=== PATIENT | female | born 1980 | race Caucasian/White ===

== ENCOUNTER 2019-04-22 14:43 | Emergency (ER) | payer OTHER, SELFPAY ==
[2019-04-22 14:50] VITALS: BP 149/89; PULSE 106; RESP 20; TEMP 37.2; O2SAT 98
--- NOTE | 2019-04-22 15:02 | ED.URI ---
HPI - URI/Sore Throat General Chief Complaint: Upper Respiratory Infection Stated Complaint: sore throat Time Seen by Provider: 04/22/19 15:02 Source: patient and RN notes reviewed History of Present Illness HPI Narrative: Patient is a 39-year-old female who presents the urgent care with complaints of sore throat. Patient states that it started last night and she has not taken anything for her symptoms. Patient denies any known fever, chills, nausea, vomiting. Reports of a slight headache. No other acute complaints. No acute distress noted. Patient read the plan of care. Related Data Allergies Allergy/AdvReac Type Severity Reaction Status Date / Time tree nut Allergy Severe Rash Verified 04/22/19 15:04 aloe Allergy Mild Rash Verified 04/22/19 15:04 corn Allergy Unknown Other Verified 04/22/19 15:04 latex Allergy Unknown Other Verified 04/22/19 15:04 wheat Allergy Unknown Other Verified 04/22/19 15:04 Cat Dander Allergy Unknown Other Uncoded 04/22/19 15:04 Dog Dander Allergy Unknown Other Uncoded 04/22/19 15:04 Review of Systems Review of Systems: Narrative: CONSTITUTIONAL: Denies fever, chills, or sweats. EYES: Denies visual changes, redness, or discharge. ENT: Reports of sore throat CARDIOVASCULAR: Denies chest pain, palpitations, or edema. RESPIRATORY: Denies cough or dyspnea. GASTROINTESTINAL: Denies abdominal pain, nausea, vomiting, or diarrhea. GENITOURINARY: Denies dysuria or hematuria. SKIN: Denies rash or itching. MUSCULOSKELETAL: Denies back pain, joint pain, or myalgia. NEUROLOGIC: Denies headache, numbness, or weakness. All other systems reviewed are negative, except as documented in HPI. [facility] Social History Social History Gender identity (if verbalized by the patient): Female Comments At the time of my signature, I reviewed and agree with the nursing past medical, surgical, social, and family history. There is no relevant family history pertinent to the patient complaint. Exam Narrative: Exam Narrative: GENERAL: This is a well-nourished, well-developed patient, in no apparent distress. HEAD: normocephalic, atraumatic. EYES: PERRL. Sclera clear/white. Vision is grossly intact. EARS: External ears normal, auditory canals clear and without drainage, TMs normal without perforation. Hearing grossly intact. NOSE: External nose normal with no obvious nasal discharge, nares without redness, no rhinorrhea. THROAT: Mucous membranes moist, mild erythema noted posterior oropharynx with moderate bilateral erythemic tonsils with ulcerated tonsil on the right. No exudate noted. NECK: Neck supple CARDIOVASCULAR: Regular rate and rhythm without murmurs, gallops, or rubs. RESPIRATORY: Clear to auscultation. Breath sounds equal bilaterally. No wheezes, rales, or rhonchi. SKIN: warm, intact with no suspicious lesions or rash, good texture and turgor. NEURO: awake, alert, and oriented to person, place and time. There were no obvious focal neurologic abnormalities. EXTREMITIES: No clubbing, cyanosis, or edema. Course Vital Signs Vital signs: Vital Signs Temperature 99.0 F 04/22/19 14:50 Pulse Rate 106 H 04/22/19 14:50 Respiratory Rate 20 04/22/19 14:50 Blood Pressure 149/89 H 04/22/19 14:50 Pulse Oximetry 98 04/22/19 14:50 Temperature 99.0 F 04/22/19 14:50 Pulse Rate 106 H 04/22/19 14:50 Respiratory Rate 20 04/22/19 14:50 Blood Pressure 149/89 H 04/22/19 14:50 Pulse Oximetry 98 04/22/19 14:50 Reviewed?patient is informed that they may have pre-hypertension or hypertension based on a blood pressure reading in the department. I recommend the patient call the primary care provider listed on their discharge instructions or a physician of their choice this week to arrange follow-up for further evaluation of possible pre-hypertension or hypertension. MDM - URI/Sore Throat MDM Narrative Medical decision making narrative: Reviewed lab results with the patient. She is aware that strep swab was ne
== END 2019-04-22 15:20 | disposition home or self-care (01) ==
PROVIDERS: Emergency Provider Nurse Practitioner Family
DX: J02.9 Acute pharyngitis, unspecified (principal)
CPT/HCPCS: 87081; 87880; 99213; G0463

== ENCOUNTER 2021-06-11 19:03 | Emergency (ER) | payer OTHER, SELFPAY ==
--- NOTE | ~2021-06-11 | XR_ITS ---
EXAMINATION: XR chest 2V DATE: 06/11/2021 19:37 INDICATION: Chest tightness. Wheezing. Cough. TECHNIQUE: Frontal and lateral views of the chest were obtained. COMPARISON: None. FINDINGS: The chest demonstrates clear lungs without pneumonia, pleural effusion, or pneumothorax. Th e heart size is normal. IMPRESSION: 1. No acute cardiopulmonary disease. Reviewed, dictated and finalized at location A.
[2021-06-11 19:09] VITALS: BP 147/88; PULSE 78; RESP 18; TEMP 36.6; O2SAT 98
--- NOTE | 2021-06-11 19:14 | ED.URI ---
HPI - URI/Sore Throat General Chief Complaint: Shortness of Breath/Dyspnea Stated Complaint: cough wheezing tight chest Time Seen by Provider: 06/11/21 19:27 Source: patient and RN notes reviewed Mode of arrival: ambulatory Limitations: no limitations History of Present Illness MD elicited complaint: cough and sore throat Related Data Home Medications Medication Instructions Recorded Confirmed No Home Medications 06/11/21 06/11/21 Allergies Allergy/AdvReac Type Severity Reaction Status Date / Time tree nut Allergy Severe Rash Verified 04/22/19 15:04 aloe Allergy Mild Rash Verified 04/22/19 15:04 corn Allergy Unknown Other Verified 04/22/19 15:04 latex Allergy Unknown Other Verified 04/22/19 15:04 wheat Allergy Unknown Other Verified 04/22/19 15:04 soy Allergy Hives Verified 06/11/21 19:25 Cat Dander Allergy Unknown Other Uncoded 04/22/19 15:04 Dog Dander Allergy Unknown Other Uncoded 04/22/19 15:04 Review of Systems Review of Systems: CONSTITUTIONAL: Denies malaise, chills, sweats, or fever. EYES: Denies visual changes, redness, or discharge. ENT: Reports rhinorrhea, congestion, sinus pain, otalgia and sore throat. CARDIOVASCULAR: Denies chest pain, palpitations, or edema. RESPIRATORY: Reports cough. Denies dyspnea. GASTROINTESTINAL: Denies abdominal pain, nausea, vomiting, diarrhea SKIN: Denies rash or itching. MUSCULOSKELETAL: Denies myalgia. NEUROLOGIC: Denies headache. All systems reviewed & are unremarkable except as noted in HPI and below PMFSH Social History Social History Gender identity (if verbalized by the patient): Female Comments At time of signature, agree with nursing past medical, surgical, social and family history. There is no relevant family history pertinent to the presenting complaint Exam Narrative: GENERAL: Well-appearing, well-nourished, and in no acute distress. HEAD: Normocephalic EYES: PERRLA, conjunctivae clear ENT: Nares clear, turbinates edematous and erythematous, clear discharge. Mucous membranes moist. TM pearly medina with dull light reflex bilaterally; no tragal tenderness. Oropharynx not erythematous without lesions. Tonsils not enlarged and without exudate, no drooling, no hoarseness, no trismus, uvula midline. NECK: Supple. No lymphadenopathy CHEST: Clear to auscultation, breath sounds equal. No wheezing, rhonchi, rales, or stridor. No respiratory distress, speaks in full sentences. HEART: Regular rate and rhythm. No murmur heard. SKIN: Warm, dry, no rash. NEURO: Alert and oriented x3. PSYCH: Normal mood and affect Course Course Emergency Course: Patient is aware of diagnosis, understands and agrees to treatment plan. Anticipatory guidance given. Patient agrees to follow-up as directed and is aware of reasons to seek care at the emergency department. Portions of this record may have been created with voice recognition software Level of Care: Express Care Visit Vital Signs Vital signs: Reviewed. MDM - URI/Sore Throat MDM Narrative Medical decision making narrative: Differential diagnosis considered: [place] virus, strep pharyngitis, allergic rhinitis, upper respiratory tract infection, sinusitis, rhinosinusitis, nasopharyngitis. viral pharyngitis, otitis media, otitis externa, pneumonia, bronchitis, viral cough syndrome, viral syndrome, and influenza. Exam findings show no acute concerns or changes; patient is non-toxic appearing and is in no distress. Patient is appropriate for outpatient treatment and follow-up. Lab Data Attestation: I reviewed the patient's lab results. Critical Care Time Critical Care Time Critical Care Time: No Discharge Plan Discharge Prescriptions: No Action No Home Medications RF: 0
--- NOTE | 2021-06-11 19:17 | ECG_ITS ---
Measurements Intervals [place] Rate: 70 P: 44 [place]: 163 QRS: 1 QRSD: 87 T: 30 QT: 383 QTc: 413 Interpretive Statements SINUS RHYTHM RSR' IN V1 AND V2 POSSIBLE RIGHT VENTRICULAR CONDUCTION DELAY BORDERLINE ECG COMPARED TO ECG 06/11/2021 19:19:38 NO SIGNIFICANT CHANGES Electronically Signed On 06-12-2021 15:35:59 CDT by Brent Arrieta M.D.
--- NOTE | 2021-06-11 19:32 | ED.SOB ---
HPI - SOB/Dyspnea General Chief Complaint: Shortness of Breath/Dyspnea Stated Complaint: cough wheezing tight chest Time Seen by Provider: 06/11/21 19:27 Mode of arrival: ambulatory Limitations: no limitations History of Present Illness HPI Narrative: 41-year-old female presents with concern for chest heaviness, shortness of breath. Reports yesterday she had a cough, the cough resolved yesterday. She reports today she had a feeling of chest heaviness and pressure like an elephant was sitting on her chest. She reports she has shortness of breath that worsens with exertion. She reports history of high blood pressure. She uses a CPAP machine at night. Patient reports she has been on control for many years, she recently stopped her control pills. She denies nasal congestion, rhinorrhea, sore throat, body aches. Reports increased fatigue. MD elicited complaint: shortness of breath and chest pain Related Data Home Medications Medication Instructions Recorded Confirmed No Home Medications 06/11/21 06/11/21 Allergies Allergy/AdvReac Type Severity Reaction Status Date / Time tree nut Allergy Severe Rash Verified 04/22/19 15:04 aloe Allergy Mild Rash Verified 04/22/19 15:04 corn Allergy Unknown Other Verified 04/22/19 15:04 latex Allergy Unknown Other Verified 04/22/19 15:04 wheat Allergy Unknown Other Verified 04/22/19 15:04 soy Allergy Hives Verified 06/11/21 19:25 Cat Dander Allergy Unknown Other Uncoded 04/22/19 15:04 Dog Dander Allergy Unknown Other Uncoded 04/22/19 15:04 Review of Systems Review of Systems: CONSTITUTIONAL: Denies malaise, chills, sweats, or fever. Reports fatigue EYES: Denies visual changes, redness, or discharge. ENT: Denies rhinorrhea, congestion, sinus pain, otalgia or sore throat. CARDIOVASCULAR: Reports midsternal chest pain and heaviness. Denies palpitations, or edema. RESPIRATORY: Denies current cough. Reports exertional dyspnea. MUSCULOSKELETAL: Denies back pain or myalgia. All systems reviewed & are unremarkable except as noted in HPI and below PMFSH Social History Social History Gender identity (if verbalized by the patient): Female Comments At time of signature, agree with nursing past medical, surgical, social and family history. There is no relevant family history pertinent to the presenting complaint Exam Narrative: GENERAL: Well-appearing, well-nourished, and in no acute distress. HEAD: Normocephalic, atraumatic. EYES: PERRLA, sclera clear, and EOMI. ENT: Mucous membranes moist. NECK: Supple. CHEST: No respiratory distress. Clear to auscultation. No bony deformities, no asymmetry. Speaks in full sentences. HEART: Regular rate and rhythm. No murmur heard. Normal peripheral pulses. SKIN: Warm, dry, no visible rash. NEURO: Alert and oriented x3. PSYCH: Normal mood and affect Course Course Emergency Course: Patient is aware of, understands and agrees to reasons to be seen in the emergency department. EMS offered, patient refused patient agrees to proceed directly to the emergency department. Portions of this record may have been created with voice recognition software Level of Care: Express Care Visit Vital Signs Vital signs: Vital Signs Temperature 98 F 06/11/21 19:09 Pulse Rate 78 06/11/21 19:09 Respiratory Rate 18 06/11/21 19:09 Blood Pressure 147/88 H 06/11/21 19:09 Pulse Oximetry 98 06/11/21 19:09 Temperature 98 F 06/11/21 19:09 Pulse Rate 78 06/11/21 19:09 Respiratory Rate 18 06/11/21 19:09 Blood Pressure 147/88 H 06/11/21 19:09 Pulse Oximetry 98 06/11/21 19:09 Reviewed. Patient has history of hypertension Transfer Transfered to: [place] Transportation: Other Transfer rationale: Chest pain Accepting physician: Maria L Macias Transfer comments: EMS offered Patient refused, she will have her sister drive her. MDM - SOB/Dyspnea MDM Narrative Medical decision making narrative: Exam findings and history warrant fur
== END 2021-06-11 19:55 | disposition short-term general hospital (02) ==
PROVIDERS: Emergency Provider Nurse Practitioner; PCP Nurse Practitioner Family
DX: R07.9 Chest pain, unspecified (principal)
CPT/HCPCS: 71046; 87804; 93005; 99213; G0463

== ENCOUNTER 2021-06-11 20:26 | Emergency (ER) | payer OTHER, SELFPAY ==
--- NOTE | ~2021-06-11 | XR_ITS ---
EXAMINATION: XR chest 2V DATE: 06/11/2021 20:43 INDICATION: Chest pain. TECHNIQUE: Frontal and lateral views of the chest were obtained. COMPARISON: Chest 2 views 06/11/2021 at 7:37 PM FINDINGS: The chest demonstrates clear lungs without pneumonia, pleural effusion, or pneumothorax. Th e heart size is normal. IMPRESSION: 1. No acute cardiopulmonary disease. Reviewed, dictated and finalized at location A.
--- NOTE | 2021-06-11 20:27 | ECG_ITS ---
Measurements Intervals [place] Rate: 67 P: 55 HI: 157 QRS: 11 QRSD: 90 T: 43 QT: 387 QTc: 411 Interpretive Statements SINUS RHYTHM POSSIBLE RIGHT VENTRICULAR CONDUCTION DELAY [RSR' IN V1/V2] BORDERLINE ECG NO PREVIOUS ECG AVAILABLE FOR COMPARISON Electronically Signed On 06-12-2021 15:32:40 CDT by Brent Arrieta M.D.
[2021-06-11 20:54] VITALS: BP 138/81; PULSE 73; RESP 18; TEMP 36.7; O2SAT 99
--- NOTE | 2021-06-11 20:59 | ED.CHESTPAIN ---
HPI - Chest Pain General Chief Complaint: Chest Pain Stated Complaint: chest pain Time Seen by Provider: 06/11/21 20:59 Source: patient Mode of arrival: ambulatory Limitations: no limitations History of Present Illness HPI narrative: Patient is a 41-year-old female who presents to the emergency department for evaluation for chest pressure mild shortness of breath over the past few days. Patient states she initially had productive cough, slight wheezing and thought that perhaps she had pneumonia. She states that she took a nap today and when she awakened experience left-sided chest pressure. No upper abdominal pain. No diaphoresis. No radiation of the pain to the jaw, neck, shoulder. No ripping or tearing sensation to the flank, middle back, abdomen. Patient does not take control, states that she was on it for many years but has discontinued it greater than 2 months ago. She denies recent long car or air travel. Denies recent history of known Covid. Denies immobility or recent surgery. Denies leg swelling, calf pain or redness. Denies history of coagulopathy in self or family members. Patient does not smoke. Patient does not feel this is related to dyspepsia. Denies any burning sensation. Patient states she went to an urgent care and was told she may have a blood clot based on some EKG findings and was referred to this emergency department. Pain has been present since 130 this afternoon. Pain described as a pressure overlying the left chest. Denies sharp or tearing pain. Denies recent heavy bending or lifting. Denies recent fall or injury. Related Data Allergies Allergy/AdvReac Type Severity Reaction Status Date / Time tree nut Allergy Severe Rash Verified 04/22/19 15:04 aloe Allergy Mild Rash Verified 04/22/19 15:04 corn Allergy Unknown Other Verified 04/22/19 15:04 latex Allergy Unknown Other Verified 04/22/19 15:04 wheat Allergy Unknown Other Verified 04/22/19 15:04 soy Allergy Hives Verified 06/11/21 19:25 Cat Dander Allergy Unknown Other Uncoded 04/22/19 15:04 Dog Dander Allergy Unknown Other Uncoded 04/22/19 15:04 Review of Systems Review of Systems: CONSTITUTIONAL: Denies fever, chills, or sweats. EYES: Denies visual changes, redness, or discharge. ENT: Denies rhinorrhea, congestion, sore throat, or otalgia. CARDIOVASCULAR: Reports left-sided chest pain without palpitations or edema RESPIRATORY: Reports cough has resolved, denies current shortness of breath GASTROINTESTINAL: Denies abdominal pain, nausea, vomiting, or diarrhea. GENITOURINARY: Denies dysuria or hematuria. SKIN: Denies rash or itching. MUSCULOSKELETAL: Denies back pain, joint pain, or myalgia. NEUROLOGIC: Denies headache, numbness, or weakness. PSYCHIATRIC: Reports history of borderline personality disorder [facility] Past Medical History Medical History (Updated 06/11/21 @ 22:42 by Daija Carolina MD) Chest pain Social History Social History (Updated 06/11/21 @ 21:22 by Daija Carolina MD) Smoking status: Never smoker Alcohol intake: never Substance use: current Substance use type: marijuana Gender identity (if verbalized by the patient): Female Exam Narrative: GENERAL: Awake, alert, conversant HEAD: Normocephalic, atraumatic. EYES: PERRLA and EOMI. ENT: Nares clear, no rhinorrhea or epistaxis. Mucous membranes moist. NECK: Supple. CHEST: No respiratory distress, breathing even and non labored, no chest wall tenderness, no wheezing, no crackles HEART: Regular rate, sinus rhythm ABDOMEN:Non distended, non tender EXTREMITIES: Normal range of motion. No edema. No calf tenderness, redness. SKIN: Warm, dry, no rash. NEURO:No focal deficits. Alert and oriented x3 Course Vital Signs Vital signs: Vital Signs Temperature 36.7 C 06/11/21 20:54 Pulse Rate 73 06/11/21 20:54 Respiratory Rate 18 06/11/21 20:54 Blood Pressure 138/81 06/11/21 20:54 Pulse Oximetry 99 06/11/21 20:54 Temperature 36.7 C 05/15
[2021-06-11 21:07] LABS: Basophils Absolute Auto 0.1 K/mm3 (0.0-0.1); Basophils Percent Auto 0.4 % (0.2-1.2); Eosinophils Absolute Auto 0.7 K/mm3 (0-0.3); Eosinophils Percent Auto 6.1 % (0-4.4); Hematocrit 43.7 % (37.0-47.0); Hemoglobin 14.9 g/dL (12.0-15.0); Immature Granulocyte Percent A 1.7 % (0-0.5); Lymphocytes Absolute Auto 4.31 K/mm3 (0.9-3.2); Lymphocytes Percent Auto 36.2 % (18.3-44.2); Mean Corpuscular HGB Conc 34.1 g/dl (32-36); Mean Corpuscular Hemoglobin 31.6 pg (26-34); Mean Corpuscular Volume 92.8 fl (80-100); Mean Platelet Volume 10.2 fl (7.4-10.4); Monocytes Absolute Auto 0.7 K/mm3 (0.1-0.6); Monocytes Percent Auto 5.6 % (2.6-8.5); Neutrophils Absolute Auto 5.9 K/mm3 (1.3-6.7); Platelet Count Result 247 k/mm3 (150-375); Red Blood Count 4.71 M/mm3 (4.2-5.4); Red Cell Distribution Width 13.3 % (11.5-14.5); White Blood Count 11.9 K/mm3 (4.5-10.0)
[2021-06-11 21:17] LABS: Alanine Aminotransferase 36 U/L (4-35); Albumin Level 4.3 g/dL (3.5-5.1); Alkaline Phosphatase 64 U/L (38-126); Anion Gap 8 mmol/L (8-16); Aspartate Amino Transferase 33 U/L (14-36); Bilirubin,Total 0.6 mg/dL (0.2-1.3); Blood Urea Nitrogen 11 mg/dL (7-17); Calcium 9.2 mg/dL (8.4-10.2); Carbon Dioxide 28 mmol/L (22-30); Chloride 102 mmol/L (98-107); Estimated CRCL calculation 149 ml/min; Estimated Glomerular Filt Rate > 60; Glucose 108 mg/dL (65-110); Lipase 242 U/L (23-300); Potassium 3.9 mmol/L (3.4-5.0); Sodium 138 mmol/L (137-145)
[2021-06-11 21:28] LABS: Troponin I < 0.012 ng/mL (0.000-0.034)
[2021-06-11 22:09] LABS: Prothrombin Time 12.6 Seconds (11.1-14.7)
[2021-06-11 22:10] LABS: Partial Thromboplastin Time 27.6 SECONDS (22.3-36.8)
[2021-06-11 22:13] LABS: D Dimer 0.41 ug/mL (<0.48)
[2021-06-11 23:12] VITALS: BP 144/100; PULSE 78; RESP 17; O2SAT 98
== END 2021-06-11 23:30 | disposition home or self-care (01) ==
PROVIDERS: Family Medicine; Emergency Provider Emergency Medicine; PCP Nurse Practitioner Family
DX: R07.89 Other chest pain (principal)
CPT/HCPCS: 36415; 71046; 80053; 83690; 84484; 85025; 85380; 85610; 85730; 87804; 93005; 99284

== ENCOUNTER 2023-01-15 09:30 | Emergency (ER) | payer OTHER, SELFPAY ==
[2023-01-15 09:36] VITALS: BP 157/96; PULSE 65; RESP 18; TEMP 36.1; O2SAT 100
--- NOTE | 2023-01-15 09:40 | ECG_ITS ---
Measurements Intervals [place] Rate: 51 P: 60 [place]: 176 QRS: 16 QRSD: 86 T: 60 QT: 422 QTc: 392 Interpretive Statements SINUS BRADYCARDIA WITH SINUS ARRHYTHMIA BASELINE ARTIFACT- II, III, AVF BORDERLINE ECG COMPARED TO ECG 06/11/2021 20:31:50 SINUS BRADYCARDIA NOW PRESENT SINUS ARRHYTHMIA NOW PRESENT Electronically Signed On 01-15-2023 11:03:25 CDT by Bravo Marshall D.O.
--- NOTE | 2023-01-15 09:49 | ED.GENADULT ---
HPI - General Adult General Stated complaint: Low Heart Rate/Dizziness Time Seen by Provider: 01/15/23 09:49 Source: patient Mode of arrival: ambulatory Limitations: no limitations History of Present Illness HPI narrative: 52-year-old female with history of high blood pressure presents with complaint of low heart rate, feeling dizzy and lightheaded for the last 3 days. Reports heart rate as low as 40 on her watch. Patient reports today she is feeling extremely fatigued, shortness of breath with exertion, left upper back pain. Denies nausea vomiting. No URI symptoms. Patient recently had allergic reaction and is taking dexamethasone, Pepcid and Claritin. All systems reviewed and negative except as noted above. Related Data Home Medications Medication Instructions Recorded Confirmed cetirizine 10 mg tablet 10 mg PO DAILY 01/15/23 01/15/23 famotidine 20 mg tablet 20 mg PO BID 01/15/23 01/15/23 lisinopril 10 mg tablet 10 mg PO DAILY 01/15/23 01/15/23 norethindrone 1 mg-ethinyl 1 tablet PO DAILY 01/15/23 01/15/23 estradiol 10 mcg (24)-iron 10 mcg(2) tablet (Lo Loestrin Fe) Allergies Allergy/AdvReac Type Severity Reaction Status Date / Time tree nut Allergy Severe Rash Verified 04/22/19 15:04 aloe Allergy Mild Rash Verified 04/22/19 15:04 corn Allergy Unknown Other Verified 04/22/19 15:04 latex Allergy Unknown Other Verified 04/22/19 15:04 wheat Allergy Unknown Other Verified 04/22/19 15:04 soy Allergy Hives Verified 06/11/21 19:25 Cat Dander Allergy Unknown Other Uncoded 04/22/19 15:04 Dog Dander Allergy Unknown Other Uncoded 04/22/19 15:04 Review of Systems Review of Systems: CONSTITUTIONAL: Denies fever, chills, or sweats. Reports fatigue, dizziness and lightheaded. EYES: Denies visual changes, redness, or discharge. ENT: Denies rhinorrhea, congestion, sore throat, or otalgia. CARDIOVASCULAR: Denies chest pain, palpitations, or edema. RESPIRATORY: Denies cough. Reports dyspnea. GASTROINTESTINAL: Denies abdominal pain, nausea, vomiting, or diarrhea. GENITOURINARY: Denies dysuria or hematuria. SKIN: Denies rash or itching. MUSCULOSKELETAL: Denies joint pain, or myalgia. Reports left upper back pain. NEUROLOGIC: Denies headache, numbness, or weakness. PSYCHIATRIC: Denies anxiety or depression. All other systems reviewed are negative, except as documented in HPI. [facility] Past Medical History Medical History (Updated 01/15/23 @ 09:59 by Claudette Anaya NP) Chest pain Social History Social History (Updated 06/11/21 @ 21:22 by Daija Carolina MD) Smoking status: Never smoker Alcohol intake: never Substance use: current Substance use type: marijuana Gender identity (if verbalized by the patient): Female Comments At time of signature, agree with nursing past medical, surgical, social and family history. There is no relevant family history pertinent to the presenting complaint. Exam Narrative: GENERAL: This is a well-nourished, well-developed patient, in no apparent distress. HEAD: normocephalic, atraumatic. EYES: PERRL. Sclera clear/white. Vision is grossly intact. EARS: External ears normal NOSE: External nose normal NECK: Neck supple, non-tender without lymphadenopathy, masses or thyromegaly. CARDIOVASCULAR: Bradycardia without murmurs, gallops, or rubs. RESPIRATORY: Clear to auscultation. Breath sounds equal bilaterally. No wheezes, rales, or rhonchi. SKIN: warm, Dry, intact with no suspicious lesions or rash, good texture and turgor. NEURO: awake, alert, and oriented to person, place and time. There were no obvious focal neurologic abnormalities. EXTREMITIES: No joint tenderness, effusion, or edema noted. Course Course Level of Care: Express Care Visit Vital Signs Vital signs: Vital Signs Temperature 36.1 C L 01/15/23 09:36 Pulse Rate 65 01/15/23 09:36 Respiratory Rate 18 01/15/23 09:36 Blood Pressure 157/96 H 01/15/23 09:36 Pulse Oximetry 100
== END 2023-01-15 10:04 | disposition short-term general hospital (02) ==
PROVIDERS: Emergency Provider Nurse Practitioner Family; PCP Nurse Practitioner Family
DX: R00.1 Bradycardia, unspecified (principal); R06.00 Dyspnea, unspecified; F12.90 Cannabis use, unspecified, uncomplicated
CPT/HCPCS: 93005; 99215; G0463

== ENCOUNTER 2024-06-11 16:47 | Emergency (ER) | payer OTHER, SELFPAY ==
--- OUTSIDE RECORDS SUMMARY | 2024-06-11 16:49 | XMS_ITS | Clinical Summary ---
Author Organization [facility] Address [address] [place] [address] Phone Care Team Providers Care Creative Art Therapist Name Role Phone Unavailable Unavailable Unavailable Reason for Visit and Chief Complaint PAP SMEAR ONLY Plan of Treatment No Plan of Treatment Recorded Assessments Includes: Assessments from this encounter No Assessments Recorded Medical Equipment - Implanted Devices Includes: Current Devices No Medical Equipment Recorded Medications Administered Includes: Administered Medications from this encounter No Administered Medications Recorded Results Includes: Results discussed during this encounter No Results Recorded For Specified Dates History of Present Illness Includes: History of Present Illness from this encounter No History of Present Illness Recorded Social History No Social History Recorded - Smoking Status Unknown Medical History Includes: Medical History addressed during this encounter No Medical History Recorded Family History Includes: Family History addressed during this encounter No Family History Recorded Review of Systems Includes: Review of Systems from this encounter No Review of Systems Recorded Mental Status Includes: Mental Status from this encounter No Mental Status Recorded Functional Status Includes: Functional Status from this encounter No Functional Status Recorded Physical Exam Includes: Physical Exam from this encounter No Physical Exam Recorded Encounters Encounter Provider Location Date Check-In Time Check-Out Time Diagnosis PAP SMEAR ONLY [facility] 7 1:30PM 2:33PM Clinical Notes Includes: Clinical Notes from this encounter No Clinical Notes Recorded
--- OUTSIDE RECORDS SUMMARY | 2024-06-11 16:49 | XMS_ITS | Clinical Summary ---
Author Organization [facility] Address [address] [place] [address] Care Team Providers Care Poke In Name Role Phone Nanci Gramajo SPRAY PAINTER Unavailable [phone] Allergies Active Allergy Reactions Criticality Noted Date Comments Aloe Vera [place] Latex Nut Flavor Nuts Anaphylaxis High 04/29/2017 Sesame Oil Soy Wheat Medications sertraline (ZOLOFT) 100 mg tablet TK 2 TS PO QD 2 02/10/20 17 Active EPINEPHrine (EPIPEN) 0.3 mg/0.3 mL injection syringeIndication s:Anaphylaxis INJECT INTRAMUSCULARLY UTD 0 02/16/20 17 Active BLISOVI FE 1.5/30, 28, 1.5 mg-30 mcg (21)/75 mg (7) per tablet TK 1 T PO QD 7 04/23/19 18 Active ondansetron ODT (ZOFRAN-ODT) 4 mg disintegrating tablet Dissolve 1 tablet oral every 4 hours as needed for nausea or vomiting. 15 tablet 07/10/19 20 Active Additional Information Patient not taking.Reported on 06/16/2023 SUMAtriptan (IMITREX) 50 mg tabletIndications :Migraine Take 1 tablet (50 mg total) by mouth once as needed for migraine May repeat dose once in 2 hours if no relief. Do not exceed 2 doses in 24 hours. 9 tablet 07/03/19 23 Active Additional Information Patient not taking.Reported on 01/20/2023 EPINEPHrine (EpiPen) 0.3 mg/0.3 mL auto-injection syringeIndication s:Anaphylaxis Inject 0.3 mL (0.3 mg total) into the muscle as instructed as needed for anaphylaxis Collaborating physician Ady Lockwood MD 2 each 1 01/11/20 Active famotidine (PEPCID) 20 mg tabletIndications :Allergic reaction to food, initial encounter Take 1 tablet (20 mg total) by mouth 2 (two) times a day for 5 days As directed for allergic reaction. Collaborating physician Ady Lockwood MD 10 tablet 01/11/20 Active Additional Information Patient not taking.Reported on 01/20/2023 cetirizine (ZyrTEC) 10 mg tabletIndications :Allergic reaction to food, initial encounter Take 1 tablet (10 mg total) by mouth daily As directed for allergy. Collaborating physician Ady Lockwood MD 30 tablet 01/11/20 Active Additional Information Patient not taking.Reported on 06/16/2023 levothyroxine (SYNTHROID) 25 mcg tablet Take 1 tablet (25 mcg total) by mouth service car driver before breakfast 30 tablet 01/16/20 Active Additional Information Patient not taking.Reported on 06/16/2023 Symbicort 160-4.5 mcg/actuation inhaler Inhale 2 puffs 2 (two) times a day 11/25/19 23 Active lisinopriL (PRINIVIL,ZESTRIL ) 10 mg tablet Take 1 tablet (10 mg total) by mouth daily 90 tablet 3 06/16/19 24 Active naproxen (NAPROSYN) 500 mg tablet Take 1 tablet (500 mg total) by mouth 2 (two) times a day with meals 30 tablet 05/19/19 25 Active meclizine (ANTIVERT) 25 mg tablet Take 1 tablet (25 mg total) by mouth 3 (three) times a day as needed for dizziness 20 tablet 05/19/19 25 Active Active Problems Problem Noted Date Diagnosed Date PVC (premature ventricular contraction) 03/17/19 24 SHAHLA (obstructive sleep apnea) 03/17/2023 Hypothyroidism 01/20/2023 Sinus bradycardia 01/20/2023 Allergic reaction to food 01/10/2023 Migraine 05/02/2013 Overview (06/18/2016): Migraine Encounters Date Type Department Care Team Description 05/18/2024 1:11 PM DIRECTOR OF INTERCOLLEGIATE ATHLETICS - 05/18/2024 3:57 PM DIRECTOR OF INTERCOLLEGIATE ATHLETICS Emergency [facility] Emergency Department [address] [place] [address] Vasovagal syncope (Primary Dx) Discharge Disposition: Discharge to home or self care from Last 3 Months Surgical History Surgery Date Site/Laterality Comments SECTION Medical History Medical History Date Comments Tension headache Headache, tensi on Hx Other Medical Headache, migra ine Multiple food allergies Family History Medical History Relation Name Comments Breast cancer Cousin Cancer Father Cancer; Diabetes Father Diabetes mellit us; Hypertension Father Hypertension; Migraines Father Migraine; Diabetes Mother Diabetes mellit us; Hypertension Mother Hypertension; Migraines Mother Migraine; Cancer Other 1 Family history of Cancer; Diabetes Other 2 Family history of Diabetes mellitus; Hypertension Other 3 Family history of Hypertension; Relation Name Status Comments Cousin Father Mother Other 1 Other 2 Other 3 Social History Tobacco Use Types Packs/Day Years Used Date Smoking Tobacco: Every Day Cigarettes Pipe Smokeless Tobacco: Never Tobacco Cessation:Ready to Q uit: Not Asked; Counseling Given: Not Answered Comments:Marijuana use daily Alcohol Use Standard Drinks/Week Comments No 0 (1 standard drink = 0.6 oz pur e alcohol) Personal Safety Answer Date Recorded Have you ever been in or are you currently in a harmful physical or emotional relationship or is someone making you feel afraid or unsafe? Denies 05/18/2024 Comments No Sex and Gender Information Value Date Recorded Sex Assigned at Not on file Legal Sex Female 1:55 AM DIRECTOR OF INTERCOLLEGIATE ATHLETICS Gender Identity Female 09/30/2022 3:22 PM CDT Sexual Orientation Not on file Obstetrics History Para Term AB IAB SAB Ectopic Multiple Livin g Live Births 1 1 1 0 0 0 0 0 Date Outcome GA Total Labor Labor/2nd/3rd Weight Sex Type Anes PTL Geovanna A1 A5 Name Clin Term Last Filed Vital Signs Vital Sign Reading Time Taken Comments Blood Pressure 137/72 05/18/2024 1:09 PM DIRECTOR OF INTERCOLLEGIATE ATHLETICS Pulse 90 05/18/2024 1:09 PM DIRECTOR OF INTERCOLLEGIATE ATHLETICS Temperature 36.5 C (97.7 F) 05/18/2024 1:09 PM DIRECTOR OF INTERCOLLEGIATE ATHLETICS Respiratory Rate 16 05/18/2024 1:09 PM DIRECTOR OF INTERCOLLEGIATE ATHLETICS Oxygen Saturation 94% 05/18/2024 1:09 PM DIRECTOR OF INTERCOLLEGIATE ATHLETICS Inhaled Oxygen Concentration - - Weight 172.4 kg (380 lb) 05/18/2024 1:09 PM DIRECTOR OF INTERCOLLEGIATE ATHLETICS Height 170.2 cm (5' 7 ) 05/18/2024 1:09 PM DIRECTOR OF INTERCOLLEGIATE ATHLETICS Body Mass Index 59.52 05/18/2024 1:09 PM DIRECTOR OF INTERCOLLEGIATE ATHLETICS Plan of Treatment Health Maintenance Due Date Last Done Comments Cervical Cancer Screening 1981 Depression Screening 1981 Hepatitis C Screening 1981 Varicella Vaccines (1 of 2 - 13+ 2-dose series) 1994 Hepatitis B Screening 1999 Regular Well Visit/Exam 18-64 1999 Pneumococcal vaccine <65 (1 of 2 - PCV) 2000 Breast Cancer Screening-Mammogram 05/29/2023 05/28/2022, 07/25/2015 Covid-19 Vaccine (2 - season) 2023 01/10/2021 Influenza Vaccine (#1) 2023 , 01/18/2018, 12/13/2014, Additional history exists DTaP/Tdap/Td Vaccine (3 - Td or Tdap) 09/06/2024 09/06/2014, 03/15/2010, 05/30/1996 HPV Vaccines Aged Out No longer eligi ble based on patient's age to complete this topic Procedures Procedure Name Priority Date/Time Associated Diagnosis Comments CT HEAD WO CONTRAST ED 05/18/2024 2 :16 PM DIRECTOR OF INTERCOLLEGIATE ATHLETICS EGFR STAT 05/18/2024 2:05 PM DIRECTOR OF INTERCOLLEGIATE ATHLETICS DIFFERENTIAL AUTO STAT 05/18/2024 2:0 5 PM DIRECTOR OF INTERCOLLEGIATE ATHLETICS COMPREHENSIVE METABOLIC PANEL STAT 05/18/2024 2:05 PM DIRECTOR OF INTERCOLLEGIATE ATHLETICS CBC WITH AUTO DIFFERENTIAL STAT 05/18/2024 2:05 PM DIRECTOR OF INTERCOLLEGIATE ATHLETICS XR SPINE THORACIC 3 VIEWS ED 05/18/2024 1:42 PM DIRECTOR OF INTERCOLLEGIATE ATHLETICS ECG 12-LEAD Routine 05/18/2024 1:15 PM DIRECTOR OF INTERCOLLEGIATE ATHLETICS DIAGNOSTIC MAMMOGRAM BILATERAL W JUVENTINO Schedule Routine, Read Routine (OP Routine) 05/28/2022 1:12 PM CDT Mastodynia from Last 3 Months or Most Recently Relevant to Health Maintenance Results * CT Head WO Contrast (05/18/2024 2:16 PM DIRECTOR OF INTERCOLLEGIATE ATHLETICS) Anatomical Region Laterality Modality Head and Neck N/A Computed Tomogra phy 05/18/2024 2:34 PM DIRECTOR OF INTERCOLLEGIATE ATHLETICS Narrative 05/18/2024 2:36 PM DIRECTOR OF INTERCOLLEGIATE ATHLETICS EXAM DESCRIPTION: CT HEAD WO CONTRAST REASON FOR STUDY: Syncopal episode today with acute closed head injury. No provided focal neurologic deficits. No provided history of inciting and/or aggravating events. No provided past medical or surgical history. TECHNIQUE: Axial images acquired through the brain without intravenous contrast. Images stored on PACS. Automated exposure control was used as a dose optimization technique for this examination. COMPARISON: CT head without contrast 07/02/2022. FINDINGS: BRAIN: No acute intra-axial hemorrhage. No edema, mass effect, midline shift, or herniation. Normal white matter. No evidence of acute territorial ischemia/infarct. EXTRA-AXIAL SPACES: No extra-axial fluid collection. No unenhanced CT evidence of extra-axial mass. CALVARIUM: No acute calvarial fracture. SINUSES/MASTOIDS: Paranasal sinuses clear. Mastoid air cells well-developed and well aerated. ORBITS: No acute abnormality. Ocular lenses and globes normal in conformation and position. OTHER: No other significant abnormality. IMPRESSION: No acute intracranial process. THIS IS AN ELECTRONICALLY VERIFIED FINAL REPORT 05/18/2024 2:36 PM - Electronically signed by Vadim English M.D. MITRA: MITRA Report ID: [id number] Reading Location: [id number] Procedure Note Vadim English MD - 05/18/2024 EXAM DESCRIPTION: CT HEAD WO CONTRAST REASON FOR STUDY: Syncopal episode today with acute closed head injury.No provided focal neurologic deficits. No provided history of incitingand/or aggravating events. No provided past medical or surgical history. TECHNIQUE: Axial images acquired through the brain without intravenous contrast. Images stored on PACS. Automated exposure control was used asa dose optimization technique for this examination. COMPARISON: CT head without contrast 07/02/2022. FINDINGS: BRAIN: No acute intra-axial hemorrhage. No edema, mass effect, midline shift, or herniation. Normal white matter. No evidence of acute territorial ischemia/infarct. EXTRA-AXIAL SPACES: No extra-axial fluid collection. No unenhanced CT evidence of extra-axial mass. CALVARIUM: No acute calvarial fracture. SINUSES/MASTOIDS: Paranasal sinuses clear. Mastoid air cellswell-developed and well aerated. ORBITS: No acute abnormality. Ocular lenses and globes normal in conformation and position. OTHER: No other significant abnormality. IMPRESSION: No acute intracranial process. THIS IS AN ELECTRONICALLY VERIFIED FINAL REPORT 05/18/2024 2:36 PM - Electronically signed by Vadim English M.D. MITRA: MITRA Report ID: [id number] Reading Location: [place] [address] PROCEDURES Final Result * eGFR (05/18/2024 2:05 PM DIRECTOR OF INTERCOLLEGIATE ATHLETICS) eGFR >90 >=60 mL/min/1. 73 m2 Comment: Interpretive Data Reference Interval Normal >/= 90 mL/min/1.73m2 Mildly decreased* 60 - 89 mL/min/1.73m2 Mildly to moderately decreased 45 - 59 mL/min/1.73m2 Moderately to severely decreased 30 - 44 mL/min/1.73m2 Severely decreased 15 - 29 mL/min/1.73m2 Kidney Failure < 15 mL/min/1.73m2 *Relative to young adult level Estimated glomerular filtration rate is determined by the 2020 CKD-EPI equation recommended by the National Kidney Foundation (A Unifying Approach to GFR Estimation: Recommendations of the NKF-ASK Task Force on Reassessing the Inclusion of Race in Diagnosing Kidney Disease, JASN 2020). The CKD-EPI equation should not be used for patients with unstable renal function and has not been validated in children and those over 70. Current interpretive data was last reviewed 2021. Blood 05/18/2024 2:05 PM DIRECTOR OF INTERCOLLEGIATE ATHLETICS 05/18/2024 2:07 PM DIRECTOR OF INTERCOLLEGIATE ATHLETICS us [facility] LAB BLOOD ORDERABLES Final Resu lt [facility] ([place]) [address] [facility] Department [place] [address] * (ABNORMAL) Differential, auto (05/18/2024 2:05 PM DIRECTOR OF INTERCOLLEGIATE ATHLETICS) Neutrophil abs 8.2(H) 1.5 - 6.5 K/cumm Imm gran abs 0.1 0.0 - 0.1 K/cumm [facility] ([place]) Lymphocyte abs 3.0 0.8 - 3.3 K/cumm [facility] ([place]) Monocyte abs 0.7 0.2 - 0.8 K/cumm [facility] ([place]) Eosinophil abs 0.3 0.0 - 0.5 K/cumm [facility] ([place]) Basophil abs 0.1 0.0 - 0.1 K/cumm [facility] ([place]) Neutrophil pct 66.2 % [facility] ([place]) Comment: Interpretive Data Percent cell count reference ranges are not reported, since discordance with absolute values may lead to misinterpretation of CBC data. Current Interpretive Data was last revised on 2017. Imm gran pct 0.6 % [facility] ([place]) Comment: Interpretive Data Percent cell count reference ranges are not reported, since discordance with absolute values may lead to misinterpretation of CBC data. Current Interpretive Data was last revised on 2017. Lymphocyte pct 24.4 % [facility] ([place]) Comment: Interpretive Data Percent cell count reference ranges are not reported, since discordance with absolute values may lead to misinterpretation of CBC data. Current Interpretive Data was last revised on 2017. Monocyte pct 5.7 % [facility] ([place]) Comment: Interpretive Data Percent cell count reference ranges are not reported, since discordance with absolute values may lead to misinterpretation of CBC data. Current Interpretive Data was last revised on 2017. Eosinophil pct 2.7 % [facility] ([place] Comment: Interpretive Data Percent cell count reference ranges are not reported, since discordance with absolute values may lead to misinterpretation of CBC data. Current Interpretive Data was last revised on 2017. Basophil pct 0.4 % [facility] ([place]) Comment: Interpretive Data Percent cell count reference ranges are not reported, since discordance with absolute values may lead to misinterpretation of CBC data. Current Interpretive Data was last revised on 2017. Blood 05/18/2024 2:05 PM DIRECTOR OF INTERCOLLEGIATE ATHLETICS 05/18/2024 2:07 PM DIRECTOR OF INTERCOLLEGIATE ATHLETICS us Lala [facility] LAB BLOOD ORDERABLES Final Resu lt [facility] ([place]) [address] [facility] [place] [address] * (ABNORMAL) CBC with auto differential (05/18/2024 2:05 PM DIRECTOR OF INTERCOLLEGIATE ATHLETICS) WBC 12.3(H) 3.8 - 9.9 K/cumm Hgb 14.9 11.9 - 15.5 g/dL [facility] Hct 43.2 35.6 - 45.5 % [facility] Plt 205 150 - 400 K/cumm [facility] ([place]) MPV 11.4 9.1 - 12.3 fL [facility] RBC 4.51 3.90 - 5.20 M/cumm [facility] ([place] MCV 95.8 81.3 - 96.4 fL [facility] MCH 33.0 27.1 - 33.3 pg [facility] MCHC 34.5 32.3 - 35.7 g/dL [facility] RDW CV 12.6 11.1 - 14.9 % [facility] RDW SD 44.7 35.7 - 48.1 fL [facility] NRBC abs 0.00 0.00 - 0.01 K/cumm [facility]) Blood 05/18/2024 2:05 PM DIRECTOR OF INTERCOLLEGIATE ATHLETICS 05/18/2024 2:07 PM DIRECTOR OF INTERCOLLEGIATE ATHLETICS us Lala [facility] LAB BLOOD ORDERABLES Final Resu lt [facility] ([place] [address] [facility] [place] [address] * (ABNORMAL) Comprehensive metabolic panel (05/18/2024 2:05 PM DIRECTOR OF INTERCOLLEGIATE ATHLETICS) Sodium 134(L) 135 - 145 mmol/L Potassium, pl 4.5 3.3 - 4.9 mmol/L [facility] Chloride 102 97 - 110 mmol/L [facility] CO2 20(L) 22 - 32 mmol/L [facility] Anion gap 12 2 - 15 mmol/L [facility] BUN 14 6 - 25 mg/dL [facility] Creatinine 0.77 0.60 - 1.10 mg/dL [facility] Glucose 107 70 - 199 mg/dL [facility] Comment: Interpretive Data Fasting glucose >/= 126 mg/dl is diagnostic for diabetes. Fasting is defined as no caloric intake for at least 8 hours. Fasting glucose between 100 mg/dl to 125 mg/dl is diagnostic of prediabetes. In a patient with classic symptoms of hyperglycemia or hyperglycemic crisis, a random glucose >/= 200 mg/dl is diagnostic for diabetes. In the absence of unequivocal hyperglycemia, results should be confirmed by repeat testing. The classification and Diagnosis of Diabetes Diabetes Care 202; 46: S19-S40. Current interpretive data was last revised 2022. Calcium 9.0 8.5 - 10.3 mg/dL [facility] Bilirubin, total 0.7 0.1 - 1.2 mg/dL [facility] ([place]) Protein, pl 7.2 6.5 - 8.5 g/dL [facility]) Albumin 3.9 3.5 - 5.0 g/dL [facility]) Alk phos 52 40 - 130 Units/L [facility] ALT 39 7 - 45 Units/L [facility] AST 36 10 - 45 Units/L [facility] Comment: Hemolysis present. Results may be affected. Slightly Hemolyzed Specimen Blood 05/18/2024 2:05 PM DIRECTOR OF [employer]COLLEGIATE ATHLETICS 05/18/2024 2:07 PM DIRECTOR OF INTERCOLLEGIATE ATHLETICS us L[facility] LAB BLOOD ORDERABLES Final Resu lt [facility] ([place]) [address] [facility] [place] [address] * XR Spine Thoracic 3 Vw (05/18/2024 1:42 PM DIRECTOR OF INTERCOLLEGIATE ATHLETICS) Anatomical Region Laterality Modality Spine N/A Computed Radiogr aphy 05/18/2024 2:07 PM DIRECTOR OF INTERCOLLEGIATE ATHLETICS Narrative 05/18/2024 2:08 PM DIRECTOR OF INTERCOLLEGIATE ATHLETICS EXAM DESCRIPTION: XR SPINE THORACIC 3 VIEWS REASON FOR STUDY: pain , walked to the restroom and passed out. Pt reports hitting her head on the bathroom wall and sliding down. Pt reports hx of TBI. Pt reports upper to mid back pain TECHNIQUE: 3 radiographic view(s) of the thoracic spine. COMPARISON: None FINDINGS: There is no definite evidence of acute fracture or subluxation involving the thoracic spine. There is minimal dextroscoliotic curvature of the thoracic spine centered at T6-T7. There are multilevel degenerative changes of the thoracic spine with disc space narrowing and endplate osteophytosis. The visualized soft tissues are grossly unremarkable. IMPRESSION: Multilevel thoracic spondylosis without definite evidence of acute fracture or subluxation. THIS IS AN ELECTRONICALLY VERIFIED FINAL REPORT 05/18/2024 2:08 PM - Electronically signed by Mariana López D.O. PS: PS Report ID: [id number] Reading Location: [id number] Procedure Note Mariana López, DO - 05/18/2024 EXAM DESCRIPTION: XR SPINE THORACIC 3 VIEWS REASON FOR STUDY: pain , walked to the restroom and passed out. Pt reports hitting her head onthe bathroom wall and sliding down. Pt reports hx of TBI. Pt reports upper tomid back pain TECHNIQUE: 3 radiographic view(s) of the thoracic spine. COMPARISON: None FINDINGS: There is no definite evidence of acute fracture or subluxation involvingthe thoracic spine. There is minimal dextroscoliotic curvature of thethoracic spine centered at T6-T7. There are multilevel degenerative changes of the thoracic spine with disc space narrowing and endplate osteophytosis. The visualized soft tissues are grossly unremarkable. IMPRESSION: Multilevel thoracic spondylosis without definite evidence of acutefracture or subluxation. THIS IS AN ELECTRONICALLY VERIFIED FINAL REPORT 05/18/2024 2:08 PM - Electronically signed by Mariana López D.O. PS: PS Report ID: [id number] Reading Location: [place] [address] [facility] IMG XR PROCEDURES Final Result * ECG 12 lead (05/18/2024 1:15 PM DIRECTOR OF INTERCOLLEGIATE ATHLETICS) 05/18/2024 1:15 PM DIRECTOR OF INTERCOLLEGIATE ATHLETICS Narrative [facility] - 05/18/2024 3:27 PM DIRECTOR OF INTERCOLLEGIATE ATHLETICS Vent Rate: 73 bpm RR Interval: 813 msec IA Interval: 161 msec QRS Duration: 106 msec QT Interval: 361 msec QTC Interval: 387 msec P-R-T [place]: 55 - 28 - 51 degrees IMPRESSION: SINUS RHYTHM LOW QRS VOLTAGE IN PRECORDIAL LEADS [QRS DEFLECTION < 1.0 mV IN CHEST LEADS] BORDERLINE ECG NO CHANGE FROM PREVIOUS TRACING NOTED Electronically Signed By: Geoff Griffith MD L[facility] ECG ORDERABLES Final Result [facility] * Diagnostic Mammogram Bilateral W Ju[place] (05/28/2022 1:12 PM CDT) Anatomical Region Laterality Modality Breast Bilateral Mammography 05/28/2022 1:57 PM CDT Impressions 05/28/2022 1:57 PM CDT 1. No suspicious finding by mammogram or ultrasound at the area of pain in the upper outer quadrant of the right breast and right axilla. Clinical follow-up is recommended. Any further evaluation regarding this pain should be based on clinical grounds. 2. No mammographic or sonographic evidence of malignancy. Screening mammogram in one year is recommended. BI-RADS: 1 - Negative. I discussed these findings and impression with the patient at the time of the examination. Electronically signed by: Jean Pierre Edwards M.D. Narrative 05/28/2022 1:57 PM CDT EXAMINATION: DIAGNOSTIC MAMMOGRAM BILATERAL W JUVENTINO, US BREAST RIGHT LIMITED ORDERING HEALTHCARE PROVIDER: JULEE SADLER HISTORY: 42-year-old female presents for evaluation of pain in the right breast and right axilla. She reports a palpable lump at this location, which is unchanged in size for multiple years but has become painful in the past 2 months. COMPARISON: No prior imaging is available for comparison. This will serve as the patient's baseline mammogram. TECHNIQUE: CC and MLO views of the bilateral breasts were obtained with digital technique using breast tomosynthesis with C view. Computer aided detection was utilized. Limited grayscale ultrasound of the right breast and right axilla was performed. FINDINGS: BREAST DENSITY: The breasts are almost entirely fatty.] MAMMOGRAM FINDINGS: No suspicious masses, suspicious calcifications, or other suspicious findings are seen within either breast. ULTRASOUND FINDINGS: Targeted sonographic evaluation of the area of pain in the upper outer quadrant of the right breast at (9-12 o'clock) and right axilla demonstrates only normal tissue with no suspicious solid mass, cyst, or other abnormality. Julee Sadler MD IMG MAMMO PROCEDURES Fin al Result from Last 3 Months or Most Recently Relevant to Health Maintenance Insurance [facility] Care Teams Poke In Relationship Specialty Start Date End Date Nanci Gramajo NP 05/18/22
--- OUTSIDE RECORDS SUMMARY | 2024-06-11 16:49 | XMS_ITS | Referral Summary ---
Author Organization [facility] Address [address] [place] [address] Care Team Providers Care Pilot Teacher Name Role Phone Nanci Gramajo Delilah SOFTBALL UMPIRE Unavailable [phone] Encounters Date Type Department Care Team Description 05/18/2024 1:11 PM [employer]OL [employer] - 05/18/2024 3:57 PM [employer] CO[employer] Emergency [facility] Emergency Department [address] [place], [place] [id number] Vasovagal syncope (Primary Dx) Discharge Disposition: Discharge to home or self care from Last 3 Months Allergies Active Allergy Reactions Criticality Noted Date Comments [place] Latex Nut Flavor Nuts Anaphylaxis High 04/29/2017 [...] doses in 24 hours. 9 tablet 07/03/19 Active Additional Information Patient not taking.Reported on [...] 1 tablet (25 mcg total) by mouth integrity director before breakfast 30 tablet 01/16/20 Active Additional Information Patient not taking.Reported on 06/16/2023 Symbicort 160-4.5 mcg/actuation inhaler Inhale 2 puffs 2 (two) times a day 11/25/19 Active lisinopriL (PRINIVIL,ZESTRIL ) 10 mg tablet [...] Diagnosed Date PVC (premature ventricular contraction) 03/17/19 SHAHLA (obstructive sleep apnea) 03/17/2023 Hypothyroidism 01/20/2023 Sinus bradycardia 01/20/2023 Allergic reaction to food 01/10/2023 Migraine 05/02/2013 Overview (06/18/2016): Migraine Social History Tobacco Use Types Packs/Day Years [...] on file Legal 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 Gender Identity Female 09/30/2022 3:22 PM CDT Sexual Orientation Not on file Last Filed Vital Signs Vital Sign Reading Time Taken Comments Blood Pressure 137/72 05/18/2024 1:09 PM HIGH SCHOOL COACH Pulse 90 05/18/2024 1:09 PM H[employer] SCHOOL COACH Temperature 36.5 C (97.7 F) 05/18/2024 1:09 PM HIGH SCHOOL COACH Respiratory Rate 16 05/18/2024 1:09 PM H[employer] SCHOOL COACH Oxygen Saturation 94% 05/18/2024 1:09 PM H[employer] SCHOOL COACH Inhaled Oxygen Concentration - - Weight 172.4 kg (380 lb) 05/18/2024 1:09 PM HIGH SCHOOL COACH Height 170.2 cm (5' 7 ) 05/18/2024 1:09 PM HIGH SCHOOL COACH Body Mass Index 59.52 05/18/2024 1:09 PM HIGH SCHOOL COACH Plan of Treatment Not on file Procedures Procedure Name Priority Date/Time Associated Diagnosis Comments CT HEAD WO CONTRAST ED 05/18/2024 2 :16 PM HIGH SCHOOL COACH EGFR STAT 05/18/2024 2:05 PM HIGH SCHOOL COACH DIFFERENTIAL AUTO STAT 05/18/2024 2:0 5 PM [employer] S[employer]OL COACH COMPREHENSIVE METABOLIC PANEL STAT 05/18/2024 2:05 PM HIGH SCHOOL COACH CBC WITH AUTO DIFFERENTIAL STAT 05/18/2024 2:05 PM HIGH SCHOOL COACH XR SPINE THORACIC 3 VIEWS ED 05/18/2024 1:42 PM HIGH SCHOOL COACH ECG 12-LEAD Routine 05/18/2024 1:15 PM HIGH SCHOOL COACH DIAGNOSTIC MAMMOGRAM BILATERAL W JUVENTINO Schedule Routine, Read Routine (OP Routine) 05/28/2022 1:12 PM CDT Mastodynia from Last 3 Months or Most Recently Relevant to Health Maintenance Results * CT Head WO Contrast (05/18/2024 2:16 PM HIGH SCHOOL COACH) Anatomical Region Laterality Modality Head and Neck N/A Computed Tomogra phy 05/18/2024 2:34 PM HIGH SCHOOL COACH Narrative 05/18/2024 2:36 PM HIGH SCHOOL COACH EXAM DESCRIPTION: CT HEAD WO CONTRAST REASON [...] Vadim English M.D. MITRA: MITRA Report ID: [id number] Reading Location: [id number] Procedure Note Vadim English MD - 05/18/2024 [...] Vadim English M.D. MITRA: MITRA Report ID: [id number] Reading Location: [place] [address] Lala KRUSE [facility] CT PROCEDURES Final Result * eGFR (05/18/2024 2:05 PM HIGH SCHOOL COACH) eGFR >90 >=60 mL/min/1. 73 m2 Comment: [...] last reviewed 2021. Blood 05/18/2024 2:05 PM HIGH SCHOOL COACH 05/18/2024 2:07 PM HIGH SCHOOL COACH us Lala KRUSE LAB BLOOD ORDERABLES Final Resu lt FREDO MONDRAGON (SAGAR) 1 [facility] [place] [address] * (ABNORMAL) Differential, auto (05/18/2024 2:05 PM HIGH SCHOOL COACH) Neutrophil abs 8.2(H) 1.5 - 6.5 K/cumm [...] revised on 2017. Blood 05/18/2024 2:05 PM HIGH SCHOOL COACH 05/18/2024 2:07 PM HIGH SCHOOL COACH us Lala KRUSE LAB BLOOD ORDERABLES Final Resu lt [facility] (SAGAR) 1 [facility] [place] [address] * (ABNORMAL) CBC with auto differential (05/18/2024 2:05 PM HIGH SCHOOL COACH) WBC 12.3(H) 3.8 - 9.9 K/cumm Hgb [...] [facility] (SAGAR) Blood 05/18/2024 2:05 PM HIGH SCHOOL COACH 05/18/2024 2:07 PM HIGH SCHOOL COACH us Lala KRUSE LAB BLOOD ORDERABLES Final Resu lt [facility] (SAGAR) 1 [facility] [place] [address] * (ABNORMAL) Comprehensive metabolic panel (05/18/2024 2:05 PM HIGH SCHOOL COACH) Sodium 134(L) 135 - 145 mmol/L Potassium, [...] (SAGAR) Glucose 107 70 - 199 mg/dL [facility] Comment: Interpretive Data Fasting glucose [...] classification and Diagnosis of Diabetes Diabetes Care 2021; 46: S19-S40. Current interpretive data was last [...] Slightly Hemolyzed Specimen Blood 05/18/2024 2:05 PM HIGH SCHOOL COACH 05/18/2024 2:07 PM HIGH SCHOOL COACH Lala KRUSE LAB BLOOD ORDERABLES Final Resu lt FREDO MONDRAGON (SAGAR) 1 [facility] [place] [address] * XR Spine Thoracic 3 Vw (05/18/2024 1:42 PM HIGH SCHOOL COACH) Anatomical Region Laterality Modality Spine N/A Computed Radiogr aphy 05/18/2024 2:07 PM HIGH SCHOOL COACH Narrative 05/18/2024 2:08 PM HIGH SCHOOL COACH EXAM DESCRIPTION: XR SPINE THORACIC 3 VIEWS [...] Mariana López D.O. PS: PS Report ID: [id number] Reading Location: [id number] Procedure Note Maribel Mariana Galindo DO - 05/18/2024 EXAM DESCRIPTION: XR SPINE [...] Mariana López D.O. PS: PS Report ID: [id number] Reading Location: [id number] Lala KRUSE IMG XR PROCEDURES Final Result * ECG 12 lead (05/18/2024 1:15 PM HIGH SCHOOL COACH) 05/18/2024 1:15 PM HIGH SCHOOL COACH Narrative [facility] - 05/18/2024 3:27 PM HIGH SCHOOL COACH Vent Rate: 73 bpm RR Interval: 813 msec ME Interval: 161 msec QRS Duration: 106 msec QT Interval: 361 msec QTC Interval: 387 msec P-R-T Thornton: 55 - 28 - 51 degrees IMPRESSION: SINUS RHYTHM LOW QRS VOLTAGE IN PRECORDIAL LEADS [QRS DEFLECTION < 1.0 mV IN CHEST LEADS] BORDERLINE ECG NO CHANGE FROM PREVIOUS TRACING NOTED Electronically Signed By: Geoff Griffith MD Lala KRUSE ECG ORDERABLES Final Result [facility] * Diagnostic Mammogram Bilateral W Juventino (05/28/2022 [...] suspicious solid mass, cyst, or other abnormality. us Julee Sadler MD IMG MAMMO PROCEDURES Fin al Result from Last 3 Months or Most Recently Relevant to Health Maintenance Insurance [facility] Care Teams Pilot Teacher Relationship Specialty Start Date End Date Nanci Gramajo NP 05/18/22
--- OUTSIDE RECORDS SUMMARY | 2024-06-11 16:49 | XMS_ITS ---
Care Plan - [facility] Created on: June 11, 2024 SEBASTIAN LOPEZ : 1980 Sex: Female Author Organization [facility] Address [address] [place] [address] Phone Care Team Providers Care Statistics Intern Name Role Phone Unavailable Unavailable Unavailable
--- OUTSIDE RECORDS SUMMARY | 2024-06-11 16:49 | XMS_ITS | Clinical Summary ---
Author Organization [facility] Address [address] [place] [address] Phone Care Team Providers Care Refractory Technician Name Role Phone Unavailable Unavailable Unavailable Reason for Visit and Chief Complaint NEW CO FOUNDER EXAM Plan of Treatment No Plan of Treatment [...] Encounters Encounter Provider Location Date Check-In Time Check- Out Time Diagnosis NEW CO FOUNDER EXAM BANDAR MERCER [facility] ASSISTANT CHIEF ENGINEER 7 10:45AM 12:13PM Clinical Notes Includes: Clinical Notes from this encounter No Clinical Notes Recorded
--- OUTSIDE RECORDS SUMMARY | 2024-06-11 16:50 | XMS_ITS | Data Portability ---
Author Organization [place] [employer], Main Office Address [address] [place] [address] Care Team Providers Care Senior Advisory Name Role Phone DEL MTZ Electrocardiogram Technician [phone] DEL MTZ Electrocardiogram Technician [phone] Assessment No assessment recorded. Plan of Treatment Reminders Order Date Submit Date Provider Last Modified By Organization Details Last Modified Time Details Appointments None recorded. Lab CBC w/ auto diff 2023 024 [facility], [address] [place], [address], 4 14:57:45 BMP, serum or plasma 2023 024 [facility], [address] [place], [address], 4 17:50:17 HbA1c (hemoglobin A1c), blood 2023 024 [email or web address] [facility], [address] [place], [address], 4 10:05:01 TSH, serum, reflex free T4 2023 024 [email or web address] [facility], [address] [place], [address], 4 10:05:01 lipid panel, serum 2022 023 [facility], [address] [place], [address], 3 19:31:14 TSH, serum, reflex free T4 2022 023 [email or web address] [facility] Orders, [address] [place], [address], 3 12:09:17 CMP, serum or plasma 2022 023 [facility] Orders, [address] [place], [address], 3 19:31:12 HbA1c (hemoglobin A1c), blood 2022 023 [email or web address] [facility] Orders, [address] [place], [address], 3 08:23:53 CBC w/ auto diff 2022 023 [facility] Orders, [address] [place], [address], 3 19:20:54 vitamin B12, serum 2022 023 [facility], [address] [place], [address], 3 20:27:05 Referral hematologis t referral - Please call patient to schedule appointment . 2023 024 [email or web address] Gideon Peterson , [address] [place], [address], 4 14:25:33 Procedures None recorded. Surgeries None recorded. Imaging None recorded. Medication Orders EpiPen 2-Froilan 0.3 mg/0.3 mL injection, auto-inject or 2022 023 [id number], [address], [place], [place], [id number], 3 12:31:14 levothyroxi ne 25 mcg tablet 2022 023 [email or web address] [facility] #[id number], [address], [place], [place], [id number], 10:44:12 Patient TargetsNo targets recorded. Patient Instructions Encounter Date Encounter Id Patient Instructions Last Modified By Organization Details Last Modified Time 02/02/2023 [id number] FU in 1 mo, sooner as needed. Not available 02/02/2023 12:34:54 03/24/2023 [id number] FU with new provider in 1-3 mo. 03/24/23 pt aware of paulo departure. Not available 03/26/2023 09:35:44 Reason for Referral Please call patient to sched e appointment. Referring Physician: Nanci Gramajo, Family Medicine, Encounter Date: 03/24/2023 Results Created Date Observation Date Name Description Value Unit Range Abnormal Flag Note LastModifiedBy Organization Detail LastModifiedTime 02/03/20 23 02/02/2023 CBC/C OMPLE TE BLD COUNT W/DIF F white blood cells 14.7 x10'3 /uL 4.2-10 .8 high Not Available [facility] (Lab) [address] [place], [address], 02/02/2023 19:20:54 02/03/20 23 02/02/2023 CBC/C OMPLE TE BLD COUNT W/DIF F red blood cells 4.72 x10'6 /uL 3.80-5 .20 Not Available [facility] (Lab) [address] [place], [address], 02/02/2023 19:20:54 02/03/20 23 02/02/2023 CBC/C OMPLE TE BLD COUNT W/DIF F hemoglobin 15.7 g/dL 12.0-1 5.6 high Not Available [facility] (Lab) [address] [place], [address], 02/02/2023 19:20:54 02/03/20 23 02/02/2023 CBC/C OMPLE TE BLD COUNT W/DIF F hematocrit 45.1 % 35.7-4 5.7 Not Available [facility] (Lab) [address] [place], [address], 02/02/2023 19:20:54 02/03/20 23 02/02/2023 CBC/C OMPLE TE BLD COUNT W/DIF F mean red cell volume 95.6 fL 82.0-9 9.0 Not Available [facility] (Lab) [address] [place], [address], 02/02/2023 19:20:54 02/03/20 23 02/02/2023 CBC/C OMPLE TE BLD COUNT W/DIF F mean red cell hemoglobin 33.3 pg 27.0-3 3.0 high Not Available [facility] (Lab) [address] [place], [address], 02/02/2023 19:20:54 02/03/20 23 02/02/2023 CBC/C OMPLE TE BLD COUNT W/DIF F mean RBC HGB concentratio n 34.8 g/dL 31.0-3 6.0 Not Available [facility] (Lab) [address] [place], [address], 02/02/2023 19:20:54 02/03/20 23 02/02/2023 CBC/C OMPLE TE BLD COUNT W/DIF F red cell distribution width 12.6 % 11.8-1 5.5 Not Available [facility] (Lab) [address] [place], [address], 02/02/2023 19:20:54 02/03/20 23 02/02/2023 CBC/C OMPLE TE BLD COUNT W/DIF F platelets 262 x10'3 /uL 150-40 0 Not Available [facility] (Lab) [address] [place], [address], 02/02/2023 19:20:54 02/03/20 23 02/02/2023 CBC/C OMPLE TE BLD COUNT W/DIF F mean platelet volume 11.3 fL 9.0-12 .4 Not Available [facility] (Lab) [address] [place], [address], 02/02/2023 19:20:54 02/03/20 23 02/02/2023 CBC/C OMPLE TE BLD COUNT W/DIF F neutrophils 60.7 % 39.0-7 2.0 Not Available [facility] (Lab) [address] [place], [address], 02/02/2023 19:20:54 02/03/20 23 02/02/2023 CBC/C OMPLE TE BLD COUNT W/DIF F lymphocytes 30.5 % 16.0-4 7.0 Not Available [facility] (Lab) [address] [place], [address], 02/02/2023 19:20:54 02/03/20 23 02/02/2023 CBC/C OMPLE TE BLD COUNT W/DIF F monocytes 5.2 % 5.0-12 .0 Not Available [facility] (Lab) [address] [place], [address], 02/02/2023 19:20:54 02/03/20 23 02/02/2023 CBC/C OMPLE TE BLD COUNT W/DIF F eosinophils 2.6 % 1.0-7. 0 Not Available [facility] (Lab) [address] [place], [address], 02/02/2023 19:20:54 02/03/20 23 02/02/2023 CBC/C OMPLE TE BLD COUNT W/DIF F basophils 0.3 % 0.0-2. 0 Not Available [facility] (Lab) [address] [place], [address], 02/02/2023 19:20:54 02/03/20 23 02/02/2023 CBC/C OMPLE TE BLD COUNT W/DIF F immature granulocytes 0.7 % 0.00-0 .50 high Not Available [facility] (Lab) [address] [place], [address], 02/02/2023 19:20:54 02/03/20 23 02/02/2023 CBC/C OMPLE TE BLD COUNT W/DIF F neutrophils, absolute count 8.91 x10'3 /uL 1.5-8. 0 high Not Available [facility] (Lab) [address] [place], [address], 02/02/2023 19:20:54 02/03/20 23 02/02/2023 CBC/C OMPLE TE BLD COUNT W/DIF F lymphocytes, absolute count 4.48 x10'3 /uL 1.07-3 .43 high Not Available [facility] (Lab) [address] [place], [address], 02/02/2023 19:20:54 02/03/20 23 02/02/2023 CBC/C OMPLE TE BLD COUNT W/DIF F monocytes, absolute count 0.77 x10'3 /uL 0.29-0 .99 Not Available [facility] (Lab) [address] [place], [address], 02/02/2023 19:20:54 02/03/20 23 02/02/2023 CBC/C OMPLE TE BLD COUNT W/DIF F eosinophils, absolute count 0.38 x10'3 /uL 0.02-0 .53 Not Available [facility] (Lab) [address] [place], [address], 02/02/2023 19:20:54 02/03/20 23 02/02/2023 CBC/C OMPLE TE BLD COUNT W/DIF F basophils, absolute count 0.04 x10'3 /uL 0.01-0 .08 Not Available [facility] (Lab) [address] [place], [address], 02/02/2023 19:20:54 02/03/20 23 02/02/2023 CBC/C OMPLE TE BLD COUNT W/DIF F immature granulocytes ,absolute 0.11 x10'3 /uL 0.00-0 .05 high Not Available [facility] (Lab) [address] [place], [address], 02/02/2023 19:20:54 02/03/20 23 02/02/2023 CBC/C OMPLE TE BLD COUNT W/DIF F nucleated red blood cells 0.0 % -0 Not Available [facility] (Lab) [address] [place], [address], 02/02/2023 19:20:54 02/03/20 23 02/02/2023 CBC/C OMPLE TE BLD COUNT W/DIF F NRBC# 0.00 x10'3 /uL Not Available [facility] (Lab) [address] [place], [address], 02/02/2023 19:20:54 02/03/20 23 02/02/2023 COMPR EHENS EVER METAB OLIC PANEL sodium 136 mmol/ L 137-14 5 low Not Available [facility] (Lab) [address] [place], [address], 02/02/2023 19:31:12 02/03/20 23 02/02/2023 COMPR EHENS EVER METAB OLIC PANEL potassium 3.7 mmol/ L 3.5-5. 1 Not Available [facility] (Lab) [address] [place], [address], 02/02/2023 19:31:12 02/03/20 23 02/02/2023 COMPR EHENS EVER METAB OLIC PANEL chloride 99 mmol/ L 98-107 Not Available [facility] (Lab) [address] [place], [address], 02/02/2023 19:31:12 02/03/20 23 02/02/2023 COMPR EHENS EVER METAB OLIC PANEL carbon dioxide 27 mmol/ L 22-30 Not Available [facility] (Lab) [address] [place], [address], 02/02/2023 19:31:12 02/03/20 23 02/02/2023 COMPR EHENS EVER METAB OLIC PANEL anion gap 13.7 mmol/ L 14-22 low Not Available [facility] (Lab) [address] [place], [address], 02/02/2023 19:31:12 02/03/20 23 02/02/2023 COMPR EHENS EVER METAB OLIC PANEL glucose 120 mg/dL 70-99 high Not Available [facility] (Lab) [address] [place], [address], 02/02/2023 19:31:12 02/03/20 23 02/02/2023 COMPR EHENS EVER METAB OLIC PANEL BUN 12 mg/dL 8-19 Not Available [facility] (Lab) [address] [place], [address], 02/02/2023 19:31:12 02/03/20 23 02/02/2023 COMPR EHENS EVER METAB OLIC PANEL creatinine 0.67 mg/dL 0.66-1 .25 Not Available [facility] (Lab) [address] [place] [address], [address], 02/02/2023 19:31:12 02/03/20 23 02/02/2023 COMPR EHENS EVER METAB OLIC PANEL GFR >60 Refer ence Range : [place] ge GFR Healt hy Adult : >60 mL/mi n/1.7 3 m2 Chron ic Kidne y Disea se: 15-60 mL/mi n/1.7 3 m2 Kidne y Failu re: <15/m L/min /1.73 m2 www.n iddk. nih.g ov The MDRD study equat ion has not been valid ated in child milo <18 years of age; pregn ant women ; the elder ly >85 years of age; or in some racia l or ethni c subgr oups, such as Hispa nics. Outsi de the valid ated rhina eters , estim ated GFR is less accur ate, requi ring clini yang judgm ent on a case- by-ca se basis . Clini yang inter preta tion for other races and ages must be made by the clini [place]. The MDRD study equat ion has not been valid ated for the evalu ation of serum creat inine relat ed to nutri dejon l statu s or medic ation usage . For perso ns <18 years of age, a pedia tric GFR calcu lator is avail able on the [facility] websi te: https ://amanda ojeda.jeremie terrazas.o zacarias/pr ofess ional s/kdo qi/gf r_cal culat or Not Available [facility] (Lab) [address] [place], [address], 02/02/2023 19:31:12 02/03/20 23 02/02/2023 COMPR EHENS EVER METAB OLIC PANEL alkaline phosphatase 57 U/L 38-126 Not Available [facility] (Lab) [address] [place], [address], 02/02/2023 19:31:12 02/03/20 23 02/02/2023 COMPR EHENS EVER METAB OLIC PANEL alanine aminotransfe rase 33 U/L 0-35 Not Available [facility] (Lab) [address] [place], [address], 02/02/2023 19:31:12 02/03/20 23 02/02/2023 COMPR EHENS EVER METAB OLIC PANEL aspartate aminotransfe rase 31 U/L 15-37 Not Available [facility] (Lab) [address] [place], [address], 02/02/2023 19:31:12 02/03/20 23 02/02/2023 COMPR EHENS EVER METAB OLIC PANEL bilirubin, total 1.40 mg/dL 0.20-1 .30 high Not Available [facility] (Lab) [address] [place], [address], 02/02/2023 19:31:12 02/03/20 23 02/02/2023 COMPR EHENS EVER METAB OLIC PANEL calcium 9.7 mg/dL 8.4-10 .2 Not Available [facility] (Lab) [address] [place], [address], 02/02/2023 19:31:12 02/03/20 23 02/02/2023 COMPR EHENS EVER METAB OLIC PANEL total protein 8.0 g/dL 6.3-8. 2 Not Available [facility] (Lab) [address] [place], [address], 02/02/2023 19:31:12 02/03/20 23 02/02/2023 COMPR EHENS EVER METAB OLIC PANEL albumin 4.5 g/dL 3.4-5. 0 Not Available [facility] (Lab) [address] [place], [address], 02/02/2023 19:31:12 02/03/20 23 02/02/2023 COMPR EHENS EVER METAB OLIC PANEL globulin 3.5 g/dL 2.6-4. 2 Not Available [facility] (Lab) [address] [place], [address], 02/02/2023 19:31:12 02/03/20 23 02/02/2023 COMPR EHENS EVER METAB OLIC PANEL A/G ratio 1.3 ratio 1.0-2. 0 Not Available [facility] (Lab) [address] [place], [address], 02/02/2023 19:31:12 02/03/20 23 02/02/2023 LIPID PANEL cholesterol 184 mg/dL 140-19 9 NIH RITU NSUS RECOM MENDA TION FOR NELY STERO L: ADULT CHILD LOW RISK: <200 <170 BORDE RLINE : <200- 239 ----- HIGH RISK: >240 >200 Not Available [facility] (Lab) [address] [place], [address], 02/02/2023 19:31:14 02/03/20 23 02/02/2023 LIPID PANEL triglyceride s 112 mg/dL 0-150 NIH RITU NSUS REPOR T RECOM MENDA TION FOR TRIGL YCERI ALEXSANDRA: ADULT CHILD LOW RISK: <150 ----- BODER LINE: 150-1 99 ----- HIGH RISK: >200 ----- Not Available [facility] (Lab) [address] [place], [address], 02/02/2023 19:31:14 02/03/20 23 02/02/2023 LIPID PANEL HDL cholesterol 53 mg/dL 40- Not Available [facility] (Lab) [address] [place], [address], 02/02/2023 19:31:14 02/03/20 23 02/02/2023 LIPID PANEL LDL cholesterol, calculated 109 mg/dL 0-130 NIH RITU NSUS REPOR T RECOM MENDA TIONS FOR LDL: ADULT CHILD LOW RISK <130 <110 (OPTI MAL LDL) <100 ----- BORDE RLINE : 130-1 59 ----- HIGH RISK: >160 >130 A TRIGL YCERI DE RESUL T >400 INVAL IDATE S THE CALCU LATIO N FOR LDL FRACT IONAT ION - THE LDL RESUL T WILL NOT BE REPOR YON. Not Available [facility] (Lab) [address] [place], [address], 02/02/2023 19:31:14 02/03/20 23 02/02/2023 TSH W/REF BUTCH FT4 TSH with reflex free T4 0.822 uIU/m L 0.465- 4.680 Not Available [facility] (Lab) [address] [place], [address], 02/02/2023 20:04:14 02/03/20 23 02/02/2023 VITAM IN B12 (MARYELLEN CHRIS ) vb12 973 pg/mL 239-93 1 high Not Available [facility] (Lab) [address] [place], [address], 02/02/2023 20:27:05 02/03/20 23 02/02/2023 HEMOG LOBIN A1C HA1C 4.6 % 4.0-6. 0 Diabe mehrdad Scree shelby Crite kayla: <5.7% Consi stent with absen ce of diabe mehrdad 5.7-6 .4% Consi stent with incre ased risk for diabe mehrdad (pred iabet es) >OR=6 .5% Consi stent with diabe mehrdad REFER ENCE: Diabe mehrdad Care 2016, 39(Boykin ppl.1 ):s13 -s22 Not Available [facility] (Lab) [address] [place], [address], 02/02/2023 20:41:55 03/24/19 24 03/24/2023 CBC/C OMPLE TE BLD COUNT W/DIF F white blood cells 12.5 x10'3 /uL 4.2-10 .8 high Not Available [facility] (Lab) [address] [place], [address], 03/24/2023 14:57:45 03/24/19 24 03/24/2023 CBC/C OMPLE TE BLD COUNT W/DIF F red blood cells 4.67 x10'6 /uL 3.80-5 .20 Not Available [facility] (Lab) [address] [place], [address], 03/24/2023 14:57:45 03/24/19 24 03/24/2023 CBC/C OMPLE TE BLD COUNT W/DIF F hemoglobin 15.4 g/dL 12.0-1 5.6 Not Available [facility] (Lab) [address] [place], [address], 03/24/2023 14:57:45 03/24/19 24 03/24/2023 CBC/C OMPLE TE BLD COUNT W/DIF F hematocrit 44.1 % 35.7-4 5.7 Not Available [facility] (Lab) [address] [place], [address], 03/24/2023 14:57:45 03/24/19 24 03/24/2023 CBC/C OMPLE TE BLD COUNT W/DIF F mean red cell volume 94.4 fL 82.0-9 9.0 Not Available [facility] (Lab) [address] [place], [address], 03/24/2023 14:57:45 03/24/19 24 03/24/2023 CBC/C OMPLE TE BLD COUNT W/DIF F mean red cell hemoglobin 33.0 pg 27.0-3 3.0 Not Available [facility] (Lab) [address] [place], [address], 03/24/2023 14:57:45 03/24/19 24 03/24/2023 CBC/C OMPLE TE BLD COUNT W/DIF F mean RBC HGB concentratio n 34.9 g/dL 31.0-3 6.0 Not Available [facility] (Lab) [address] [place], [address], 03/24/2023 14:57:45 03/24/19 24 03/24/2023 CBC/C OMPLE TE BLD COUNT W/DIF F red cell distribution width 12.0 % 11.8-1 5.5 Not Available [facility] (Lab) [address] [place], [address], 03/24/2023 14:57:45 03/24/19 24 03/24/2023 CBC/C OMPLE TE BLD COUNT W/DIF F platelets 274 x10'3 /uL 150-40 0 Not Available [facility] (Lab) [address] [place], [address], 03/24/2023 14:57:45 03/24/19 24 03/24/2023 CBC/C OMPLE TE BLD COUNT W/DIF F mean platelet volume 10.7 fL 9.0-12 .4 Not Available [facility] (Lab) [address] [place], [address], 03/24/2023 14:57:45 03/24/19 24 03/24/2023 CBC/C OMPLE TE BLD COUNT W/DIF F neutrophils 57.0 % 39.0-7 2.0 Not Available [facility] (Lab) [address] [place], [address], 03/24/2023 14:57:45 03/24/19 24 03/24/2023 CBC/C OMPLE TE BLD COUNT W/DIF F lymphocytes 29.5 % 16.0-4 7.0 Not Available [facility] (Lab) [address] [place], [address], 03/24/2023 14:57:45 03/24/19 24 03/24/2023 CBC/C OMPLE TE BLD COUNT W/DIF F monocytes 5.3 % 5.0-12 .0 Not Available [facility] (Lab) [address] [place], [address], 03/24/2023 14:57:45 03/24/19 24 03/24/2023 CBC/C OMPLE TE BLD COUNT W/DIF F eosinophils 6.7 % 1.0-7. 0 Not Available [facility] (Lab) [address] [place], [address], 03/24/2023 14:57:45 03/24/19 24 03/24/2023 CBC/C OMPLE TE BLD COUNT W/DIF F basophils 0.4 % 0.0-2. 0 Not Available [facility] (Lab) [address] [place], [address], 03/24/2023 14:57:45 03/24/19 24 03/24/2023 CBC/C OMPLE TE BLD COUNT W/DIF F immature granulocytes 1.1 % 0.00-0 .50 high Not Available [facility] (Lab) [address] [place], [address], 03/24/2023 14:57:45 03/24/19 24 03/24/2023 CBC/C OMPLE TE BLD COUNT W/DIF F neutrophils, absolute count 7.12 x10'3 /uL 1.5-8. 0 Not Available [facility] (Lab) [address] [place], [address], 03/24/2023 14:57:45 03/24/19 24 03/24/2023 CBC/C OMPLE TE BLD COUNT W/DIF F lymphocytes, absolute count 3.68 x10'3 /uL 1.07-3 .43 high Not Available [facility] (Lab) [address] [place], [address], 03/24/2023 14:57:45 03/24/19 24 03/24/2023 CBC/C OMPLE TE BLD COUNT W/DIF F monocytes, absolute count 0.66 x10'3 /uL 0.29-0 .99 Not Available [facility] (Lab) [address] [place], [address], 03/24/2023 14:57:45 03/24/19 24 03/24/2023 CBC/C OMPLE TE BLD COUNT W/DIF F eosinophils, absolute count 0.83 x10'3 /uL 0.02-0 .53 high Not Available [facility] (Lab) [address] [place], [address], 03/24/2023 14:57:45 03/24/19 24 03/24/2023 CBC/C OMPLE TE BLD COUNT W/DIF F basophils, absolute count 0.05 x10'3 /uL 0.01-0 .08 Not Available [facility] (Lab) [address] [place], [address], 03/24/2023 14:57:45 03/24/19 24 03/24/2023 CBC/C OMPLE TE BLD COUNT W/DIF F immature granulocytes ,absolute 0.14 x10'3 /uL 0.00-0 .05 high Not Available [facility] (Lab) [address] [place], [address], 03/24/2023 14:57:45 03/24/19 24 03/24/2023 CBC/C OMPLE TE BLD COUNT W/DIF F nucleated red blood cells 0.0 % -0 Not Available [facility] (Lab) [address] [place], [address], 03/24/2023 14:57:45 03/24/19 24 03/24/2023 CBC/C OMPLE TE BLD COUNT W/DIF F NRBC# 0.00 x10'3 /uL Not Available [facility] (Lab) [address] [place], [address], 03/24/2023 14:57:45 03/24/19 24 03/24/2023 HEMOG LOBIN A1C HA1C 4.7 % 4.0-6. 0 Diabe mehrdad Scree shelby Crite kayla: <5.7% Consi stent with absen ce of diabe mehrdad 5.7-6 .4% Consi stent with incre ased risk for diabe mehrdad (pred iabet es) >OR=6 .5% Consi stent with diabe mehrdad REFER ENCE: Diabe mehrdad Care 2015, 39(Boykin ppl.1 ):s13 -s22 Not Available [facility] (Lab) [address] [place], [address], 03/24/2023 17:20:08 03/24/19 24 03/24/2023 BASIC METAB OLIC PANEL sodium 138 mmol/ L 137-14 5 Not Available [facility] (Lab) [address] [place], [address], 03/24/2023 17:50:17 03/24/19 24 03/24/2023 BASIC METAB OLIC PANEL potassium 3.8 mmol/ L 3.5-5. 1 Not Available [facility] (Lab) [address] [place], [address], 03/24/2023 17:50:17 03/24/19 24 03/24/2023 BASIC METAB OLIC PANEL chloride 101 mmol/ L 98-107 Not Available [facility] (Lab) [address] [place], [address], 03/24/2023 17:50:17 03/24/19 24 03/24/2023 BASIC METAB OLIC PANEL carbon dioxide 26 mmol/ L 22-30 Not Available [facility] (Lab) [address] [place], [address], 03/24/2023 17:50:17 03/24/19 24 03/24/2023 BASIC METAB OLIC PANEL anion gap 14.8 mmol/ L 14-22 Not Available [facility] (Lab) [address] [place], [address], 03/24/2023 17:50:17 03/24/19 24 03/24/2023 BASIC METAB OLIC PANEL glucose 95 mg/dL 70-99 Not Available [facility] (Lab) [address] [place], [address], 03/24/2023 17:50:17 03/24/19 24 03/24/2023 BASIC METAB OLIC PANEL BUN 12 mg/dL 8-19 Not Available [facility] (Lab) [address] [place], [address], 03/24/2023 17:50:17 03/24/19 24 03/24/2023 BASIC METAB OLIC PANEL creatinine 0.66 mg/dL 0.66-1 .25 Not Available [facility] (Lab) [address] [place], [address], 03/24/2023 17:50:17 03/24/19 24 03/24/2023 BASIC METAB OLIC PANEL GFR >60 Refer ence Range : [place] ge GFR Healt hy Adult : >60 mL/mi n/1.7 3 m2 Chron ic Kidne y Disea se: 15-60 mL/mi n/1.7 3 m2 Kidne y Failu re: <15/m L/min /1.73 m2 www.n iddk. nih.g ov The MDRD study equat ion has not been valid ated in child milo <18 years of age; pregn ant women ; the elder ly >85 years of age; or in some racia l or ethni c subgr oups, such as Hisut nics. Outsi de the valid ated rhina eters , estim ated GFR is less accur ate, requi ring clini yang judgm ent on a case- by-ca se basis . Clini yang inter preta tion for other races and ages must be made by the clini [place]. The MDRD study equat ion has not been valid ated for the evalu ation of serum creat inine relat ed to nutri dejon l statu s or medic ation usage . For perso ns <18 years of age, a pedia tric GFR calcu lator is avail able on the F websi te: https ://ww w.kid nini.o rg/pr ofess ional s/kdo qi/gf r_cal culat or Not Available [facility] (Lab) [address] [place], [address], 03/24/2023 17:50:17 03/24/19 24 03/24/2023 BASIC METAB OLIC PANEL calcium 10.0 mg/dL 8.4-10 .2 Not Available [facility] (Lab) [address] [place], [address], 03/24/2023 17:50:17 03/24/19 24 03/24/2023 TSH thyroid-stim ulating hormone 0.348 uIU/m L 0.465- 4.680 low Not Available [facility] (Lab) [address], [place], [address], 03/24/2023 18:16:31 06/12/19 22 06/11/2021 XR, chest No observ ation record ed. [id number] [facility] [address], [place], [address], 05/13/2022 18:07:00 06/13/19 22 06/11/2021 XR, chest No observ ation record ed. [email or web address]. [facility] [address], [place], [address], 05/13/2022 18:07:00 09/19/19 22 09/18/2021 [place], thyro id No observ ation record ed. [email or web address] [facility] [address] [facility], [place], [address], 02/02/2023 12:57:34 10/01/19 22 09/30/2021 [place], modif ied alejandro hutchison study No observ ation record ed. [email or web address] [facility] [address] [place], [address], 02/02/2023 12:57:34 10/01/19 22 09/30/2021 [place], modif ied alejandro hutchison study No observ ation record ed. [email or web address] [facility] [address] [place], [address], 02/02/2023 12:57:34 Result Notes None recorded. 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 Not Available [facility] 3 18:04:32 Seen in emergency clinic 766708335 Active 2021 Not Available [facility] 3 18:04:32 Transition of care 7227234828334 Active 2021 Not Available [facility] 3 18:04:32 Borderline personalit y disorder 99016323 Active 2020 Not Available [facility] 3 18:04:32 Mixed anxiety and depressive disorder 697647511 Active 2017 Not Available [facility] 3 18:04:32 Morbid obesity 098883031 Active 2020 Not Available [facility] 3 18:04:32 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 Not Available [facility] 3 18:04:32 Headache 06349667 Active 2020 Not Available [facility] 3 18:04:32 Low back pain 698929471 Active Not Available [facility] 3 18:04:32 Chest pain 76928276 Active 2021 Not Available [facility] 3 18:04:32 Vitamin D deficiency 18467627 Active 2021 Not Available [facility] 3 18:04:33 Postconcus loly syndrome 18568896 Active 2020 Not Available [facility] 3 18:04:33 Dysphagia 18071835 Active 2021 Not Available [facility] 3 18:04:33 Body mass index 40+ - severely obese 119267610 Active 2018 Not Available [facility] 3 18:04:33 Obese 572259518 Active 2017 Not Available [facility] 3 18:04:33 Furuncle 160938062 Active 2017 Not Available [facility] 3 18:04:33 Infection by methicilli n sensitive Staphyloco ccus aureus 836496213 Active 2017 Not Available [facility] 3 18:04:33 Posttrauma tic stress disorder 56540643 Active 2020 Not Available [facility] 3 18:04:33 Anxiety 86323980 Active 2020 Not Available [facility] 3 18:04:34 Wheezing 26804699 Active 2021 Not Available [facility] 3 18:04:34 Essential hypertensi on 52509587 Active 2016 Not Available [facility] 3 18:04:34 Vitamin B12 deficiency (non anemic) 34742772 Active 2021 Not Available [facility] 3 18:04:34 Urinary tract infectious disease 99861239 Active 2016 Not Available [facility] 3 18:04:34 Snoring 63631130 Active 2017 Not Available [facility] 3 18:04:34 Sleep apnea 88350136 Active 2017 Not Available [facility] 3 18:04:35 Obstructiv e sleep apnea syndrome 99367798 Active 2018 Not Available [facility] 3 18:04:35 Fatigue 08616054 Active 2017 Not Available [facility] 3 18:04:35 History of traumatic brain injury 5702072475207 0 Active 2021 Not Available [facility] 3 18:04:35 Allergy to nut 87048521 Active 2017 Not Available [facility] 3 18:04:35 Skin lesion 04083994 Active 2017 Not Available [facility] 3 18:04:35 Allergic reaction 170243906 Active 2022 Nanci Gramajo NP [address], [address], [place], [address] , [employer] 3 18:45:58 Thyroid stimulatin g hormone level above reference range 897905548 Active 2022 Nanci Gramajo NP [address], [address], [place], [address] , [employer] 3 12:23:17 Asthma 790018399 Active 2022 Nanci Gramajo NP [address], [place], [address] , [facility] 3 12:32:40 Leukocytos is 372262074 Active 2022 Nanci Gramajo NP [address], [place], [address] , [facility] 3 17:56:21 Palpitatio ns 67502464 Active 2023 Nanci Gramajo NP [address], [address], [place], [address] , [facility] [employer] 4 10:43:58 Migraine 13034044 Active 2023 aNnci Gramajo NP [address], [address], [place], [address] , [facility] [employer] 4 10:45:33 Hyperglyce josette 39651247 Active 2023 Nanci Gramajo NP [address], [place], [address] , [facility] [employer] 4 10:56:41 Problem Notes None recorded. Procedures Surgical History Date Name Laterality Status Provider Name and Address Organization Details Recorded Time 3 Most Recent Mammogram completed Nanci Piedra RN [facility] 02/02/2023 11:58:04 3 Date of Last Pap Smear completed Nanci Piedra RN [facility] 02/02/2023 11:58:39 Imaging Results Imaging Date Name Status LastModified by Organ atmission hospital Details LastModified Time 06/11/2021 XR, chest completed M[facility]ATION. 026 [facility] [address], [place], [address], 05/13/2022 18:07:00 06/11/2021 XR, chest completed M[facility]ATION. 026 [facility] [address] [facility] [address], [place], [address], 05/13/2022 18:07:00 09/30/2021 [place], modified barium swallow study completed [email or web address] [facility] [address] [facility], [place], [address], 02/02/2023 12:57:34 09/18/2021 US, thyroid completed [email or web address] [address] [facility], [place], [address], 02/02/2023 12:57:34 09/30/2021 [place], modified barium swallow study completed [email or web address] [facility] [address] [facility], [place], [address], 02/02/2023 12:57:34 Procedure Notes None recorded. Medical Equipment None Reported. Allergies Allergen ID Allergen Name Allergen Category Reaction Reaction Severity Criticality Documentation Date Start Date Code Code System Note Provider Name and Address Organization Details Recorded Time 33388 wheat preparati on food,medi cation Not available Not available Not available 05/13/2022 47557 52 RxNorm Not Available [facility] 3 18:06:56 23183 tree nut food Not available Not available Not available 05/13/2022 35990 UNK Not Available [facility] 3 18:06:56 22878 soy environme nt,food,m edication Not available Not available Not available 05/13/2022 24367 UNK Not Available [facility] 3 18:06:56 62684 sesame seed extract food Not available Not available Not available 05/13/2022 10931 46 RxNorm Not Available [facility] 3 18:06:56 11028 peanut allergeni c extract food,medi cation anaphylax is Not available Not available 05/13/2022 34534 8 RxNorm Not Available [facility] 3 18:06:57 64829 nut - unspecifi ed food Not available Not available Not available 05/13/2022 04694 UNK Not Available [facility] 3 18:06:57 05792 latex environme nt,medica tion Not available Not available Not available 05/13/2022 53564 91 RxNorm Not Available [facility] 3 18:06:57 59854 Canis lupus familiari s extract environme nt Not available Not available Not available 05/13/2022 28439 4 RxNorm Not Available [facility] 3 18:06:57 60875 corn extract food,medi cation Not available Not available Not available 05/13/2022 71821 08 RxNorm Not Available [facility] 3 18:06:57 05332 cat dander environme nt Not available Not available Not available 05/13/2022 32689 UNK Not Available [facility] 3 18:06:57 81564 aloe extract food,medi cation Not available Not available Not available 05/13/2022 99339 RxNorm Not Available [facility] 3 18:06:57 Medications Name Sig Start Date Stop Date Status Note LastModified by Organization Details LastModified Time losartan 50 mg tablet TAKE 1 TABLET BY MOUTH DAILY active Not Available Not Available No t Available amoxicill in 500 mg capsule active Not Available Not Available Not Available prednison e 10 mg tablet 11/23 completed Not Available Not Available Not Available loperamid e 2 mg capsule 06/24 completed Not Available Not Available Not Available cetirizin e 10 mg tablet TAKE 1 TABLET BY MOUTH DAILY active Not Available Not Available No t Available azithromy aga 250 mg tablet 07/10 completed Not Available Not Available Not Available ibuprofen 800 mg tablet active Not Available Not Available Not Available fluconazo le 150 mg tablet TK 1 T PO QD 07/08 completed Not Available Not Available Not Available hydrocodo ne 5 mg-acetam inophen 325 mg tablet TK 1 T PO Q 6 H PRF MODERATE OR MORE SEVERE PAIN 07/10 completed Not Available Not Available Not Available phenazopy ridine 200 mg tablet active Not Available Not Available Not Available metronida zole 0.75 % (37.5 mg/5 gram) vaginal gel 07/10 completed Not Available Not Available Not Available sertralin e 100 mg tablet TK 2 TS PO QD 07/10 completed Not Available Not Available Not Available phentermi ne 15 mg capsule Take 1 capsule every day by oral route. active Not Available Not Available No t Available sumatript an 50 mg tablet TAKE 1 TABLET BY MOUTH ONCE NEEDED FOR MIGRAINE MAY REPEAT IN 2 HOURS IF NO RELIEF. DO NOT EXCEED 2 DOSES active Not Available Not Available No t Available promethaz ine 6.25 mg-codein e 10 mg/5 mL syrup TK 5 ML PO Q 4 H PRN P 07/10 completed Not Available Not Available Not Available topiramat e 25 mg tablet 07/10 completed Not Available Not Available Not Available metronida zole 500 mg tablet TK 4 TS PO NOW ONE DOSE 07/08 completed Not Available Not Available Not Available phentermi ne 37.5 mg tablet TAKE 1 TABLET BY MOUTH EVERY DAY. active Not Available Not Available No t Available ciproflox acin 250 mg tablet Take 1 tablet every 12 hours by oral route for 3 days. 07/08 completed Not Available Not Available Not Available ciproflox acin 500 mg tablet TK 1 T PO Q 12 H FOR 5 DAYS 07/08 completed Not Available Not Available Not Available sulfameth oxazole 800 mg-trimet hoprim 160 mg tablet TK 1 T PO Q 12 H FOR 10 DAYS 01/25 completed Not Available Not Available Not Available tramadol 50 mg tablet TK 1 T PO Q 6 H PRN P 07/10 completed Not Available Not Available Not Available triamcino lone acetonide 0.1 % topical cream APPLY TOPICALL Y TO THE AFFECTED AREA UP TO TWICE DAILY NEEDED active Not Available Not Available No t Available acyclovir 800 mg tablet TK 1 T PO TID FOR 3 DAYS PRN FOR COLD SORE active cold sores Not Available Not Available Not Available levothyro xine 25 mcg tablet TAKE 1 TABLET BY MOUTH EVERY DAY 03/24 completed Not Available Not Available Not Available nystatin- triamcino lone 100,000 unit/gram -0.1 % topical ointment APPLY TO AFFECED AREA BID 07/10 completed Not Available Not Available Not Available Microgest in FE 04/03 (28) 1 mg-20 mcg (21)/75 mg (7) tablet active Not Available Not Available Not Available amoxicill in 875 mg tablet TK 1 T PO BID 06/24 completed Not Available Not Available Not Available famotidin e 20 mg tablet TAKE 1 TABLET BY MOUTH TWICE DAILY FOR 5 DAYS active Not Available Not Available No t Available hydrocodo ne 7.5 mg-acetam inophen 325 mg tablet TK 1 T PO BID PRN 10/14 completed INCONSIS TENT UDS 10/15/15 Not Available Not Available Not Available cephalexi n 500 mg capsule TK 1 C PO TID FOR 10 DAYS 07/10 completed Not Available Not Available Not Available fluoxetin e 20 mg tablet TAKE 1 TABLET BY MOUTH EVERY DAY 02/28 completed Not Available Not Available Not Available nystatin 100,000 unit/gram topical cream APPLY NEEDED 07/08 completed Not Available Not Available Not Available dexametha sone 4 mg tablet TAKE 3 TABLETS BY MOUTH DAILY WITH BREAKFAS T FOR 2 DAYS 02/02 completed Not Available Not Available Not Available clotrimaz ole-betam ethasone 1 %-0.05 % topical cream APPLY AA BID FOR 1 WEEK 07/08 completed Not Available Not Available Not Available lisinopri l 10 mg tablet TAKE 1 TABLET BY MOUTH EVERY DAY active Not Available Not Available No t Available prednison e 50 mg tablet TK 1 T PO D 06/24 completed Not Available Not Available Not Available lidocaine 5 % topical patch APPLY 1 PATCH BY TRANSDER MAL ROUTE ONCE DAILY. MAY WEAR UP TO 12 HOURS active Not Available Not Available No t Available Valtrex 1 gram tablet Take 2 tablets po bid for 1 day at onset of cold sore 07/08 completed Not Available Not Available Not Available mupirocin 2 % topical ointment YONG TO NOSTRILS WITH Q-TIP BID FOR 7 DAYS 07/10 completed Not Available Not Available Not Available zolpidem 5 mg tablet Take 1 tablet every day by oral route for 8 days. 10/14 completed INCONSIS TENT UDS Not Available Not Available Not Available epinephri ne 0.3 mg/0.3 mL injection , auto-inje ctor INJECT DIRECTED ON PACKAGE active Not Available Not Available No t Available ondansetr on 4 mg disintegr ating tablet 11/23 completed Not Available Not Available Not Available topiramat e 100 mg tablet 07/10 completed Not Available Not Available Not Available sertralin e 50 mg tablet active Not Available Not Available Not Available escitalop kevan 10 mg tablet TAKE 1 TABLET BY MOUTH EVERY DAY active Not Available Not Available No t Available Microgest in 04/03 (21) 1 mg-20 mcg tablet Take 1 tablet every day by oral route for 21 days. active Not Available Not Available No t Available aripipraz ole 5 mg tablet TK 1 T PO QD 07/10 completed Not Available Not Available Not Available bupropion HCl XL 150 mg 24 hr tablet, extended release active Not Available Not Available Not Available topiramat e 50 mg tablet TK 1 T PO BID 07/10 completed Not Available Not Available Not Available nitrofura ntoin monohydra te/macroc rystals 100 mg capsule 11/23 completed Not Available Not Available Not Available ProAir HFA 90 mcg/actua tion aerosol inhaler 2 puffs inh q 4 hours prn wheezing active Not Available Not Available No t Available aripipraz ole 2 mg tablet 07/10 completed Not Available Not Available Not Available Symbicort 160 mcg-4.5 mcg/actua tion HFA aerosol inhaler INHALE 2 PUFFS BY MOUTH TWICE DAILY active Not Available Not Available No t Available Lo Loestrin Fe 1 mg-10 mcg (24)/10 mcg (2) tablet TAKE 1 TABLET BY MOUTH ONCE DAILY 03/24 completed Not Available Not Available Not Available lidocaine 5 % topical ointment YONG EXT AA 1 TO 4 XD PRN 11/23 completed Back pain Not Available Not Available Not Available Virtussin AC 10 mg-100 mg/5 mL oral liquid TK 5 ML PO Q 6 H FOR COUGH 06/24 completed Not Available Not Available Not Available Aurovela Fe 1.5/30 (28) 1.5 mg-30 mcg (21)/75 mg (7) tablet TAKE 1 TABLET BY MOUTH EVERY DAY 05/14 completed Not Available Not Available Not Available Vitals Date Recorded Body mass index (BMI) Body height Oxygen saturation Oxygen saturation in Arterial blood by Pulse oximetry Heart rate Body temperature Body weight Systolic blood pressure Diastolic blood pressure Systolic blood pressure Diastolic blood pressure Provider Name and Address Organization Details Last Updated DateTime 2 57.7 kg/m2 168.91 cm 98 % 98 % 94 /min 97.4 [degF] 076085. 03 g 130 mm[Hg] 100 mm[Hg] 143 mm[Hg] 93 mm[Hg] Not Available [facility] 3 18:03:44 Date Recorded Body mass index (BMI) Body height Oxygen saturation Oxygen saturation in Arterial blood by Pulse oximetry Heart rate Body temperature Body weight Systolic blood pressure Diastolic blood pressure Provider Name and Address Organization Details Last Updated DateTime 2 58.1 kg/m2 168.91 cm 96 % 96 % 76 /min 96.8 [degF] 739645. 02 g 138 mm[Hg] 92 mm[Hg] Not Available [facility] 3 18:03:44 Date Recorded Body mass index (BMI) Body height Oxygen saturation Oxygen saturation in Arterial blood by Pulse oximetry Heart rate Body temperature Body weight Systolic blood pressure Diastolic blood pressure Provider Name and Address Organization Details Last Updated DateTime 2 57.7 kg/m2 168.91 cm 97 % 97 % 86.01 /min 97.8 [degF] 048736. 03 g 142 mm[Hg] 94 mm[Hg] Not Available [facility] 3 18:03:44 Date Recorded Body weight Body mass index (BMI) Body height Body temperature Heart rate Respiratory rate Oxygen saturation Oxygen saturation in Arterial blood by Pulse oximetry Pain severity - 0-10 verbal numeric rating [Score] - Reported Systolic blood pressure Diastolic blood pressure Provider Name and Address Organization Details Last Updated DateTime 3 883922. 11 g 51.1 kg/m2 170.18 cm 96.7 [degF] 76 /min 20 /min 97 % 97 % 4 130 mm[Hg] 82 mm[Hg] Nanci Piedra RN [facility] [facility] 3 11:56:24 Date Recorded Body height Body mass index (BMI) Body weight Body temperature Heart rate Respiratory rate Oxygen saturation Oxygen saturation in Arterial blood by Pulse oximetry Systolic blood pressure Diastolic blood pressure Provider Name and Address Organization Details Last Updated DateTime 4 170.18 cm 57.4 kg/m2 079425. 61 g 96.9 [degF] 72 /min 20 /min 98 % 98 % 142 mm[Hg] 90 mm[Hg] ANSLEY Padilla [facility] [employer] [facility] [facility] 4 10:20:10 Social History Question Answer Notes LastModified by Organizat ion Details LastModified Time Tobacco Smoking Status Never Smoker Not Available [facility] 05/13/2022 18:02:59 Do You Have An Advance Directive? No [id number] Information not available 05/13/2022 Do You Wear A Helmet When Biking? No MIGRATION.10683 [id number] Information not available 05/13/2022 Is Blood Transfusion Acceptable In An Emergency? Yes Information not available 02/02/2023 What Is Your Level Of Caffeine Consumption? Occasional MIGRATION.52870 [id number] Information not available 05/13/2022 What Is Your Code Status? Full Code Information not available 02/02/2023 In The 14 Days Before Symptom Onset, Have You Had Close Contact With A Laboratory-confi rmed COVID-19 While That Case Was Ill? No MIGRATION.65656 [id number] Information not available 05/13/2022 In The 14 Days Before Symptom Onset, Have You Had Close Contact With A Person Who Is Under Investigation For COVID-19 While That Person Was Ill? No MIGRATION.33437 [id number] Information not available 05/13/2022 What Type Of Diet Are You Following? REGULAR MIGRATION.20729 87664 Information not available 05/13/2022 What Is The Highest Grade Or Level Of School You Have Completed Or The Highest Degree You Have Received? [id number] MIGRATION.55949 18348 Information not available 05/13/2022 What Is Your Occupation? Read X[employer] Reports MIGRATION.62837 13569 Information not available 05/13/2022 How Many Days Of Moderate To Strenuous Exercise, Like A Brisk Walk, Did You Do In The Last 7 Days? 0 MIGRATION.64740 11340 Information not available 05/13/2022 Have There Been Any Changes To Your Family Or Social Situation? No MIGRATION.12480 07358 Information not available 05/13/2022 Are There Any Guns Present In Your Home? No MIGRATION.55135 88878 Information not available 05/13/2022 Do You Use Insect Repellent Routinely? No MIGRATION.32111 33171 Information not available 05/13/2022 Where Do You Live? [place]House MIGRATION.85912 12444 Information not available 05/13/2022 Do You Have A Medical Power Of Squad Leader? No MIGRATION.98658 43819 Information not available 05/13/2022 What Was The Date Of Your Most Recent Tobacco Screening? 09/10/2021 MIGRATION.79193 92037 Information not available 05/13/2022 Do You Have Any Pets? Yes MIGRATION.01204 63660 Information not available 05/13/2022 What Is Your Relationship Status? Single MIGRATION.85972 94026 Information not available 05/13/2022 Do You Use Your Seat Belt Or Car Seat Routinely? Yes MIGRATION.03067 17292 Information not available 05/13/2022 Do You Have Smoke And Carbon Monoxide Detectors In Your Home? Yes MIGRATION.04953 02961 Information not available 05/13/2022 Are You Passively Exposed To Smoke? No MIGRATION.63308 28843 Information not available 05/13/2022 Are There Any Smokers In Your House? No MIGRATION.46887 79207 Information not available 05/13/2022 Do You Participate In Social [employer]? Yes MIGRATION.65345 08709 Information not available 05/13/2022 Do You Feel Stressed (tense, Restless, Nervous, Or Anxious, Or Unable To Sleep At Night)? [id number] MIGRATION.85715 85892 Information not available 05/13/2022 Do You Use Any Illicit Or Recreational Drugs? Yes MIGRATION.19820 22177 Information not available 05/13/2022 Do You Use Sunscreen Routinely? Yes MIGRATION.23189 36818 Information not available 05/13/2022 Have You Recently Traveled Abroad? No MIGRATION.37657 66081 Information not available 05/13/2022 Are You Currently In School? No MIGRATION.90092 40633 Information not available 05/13/2022 Do You Have Any Dietary Restrictions? No MIGRATION.21058 01089 Information not available 05/13/2022 Do You Or Have You Ever Used Any Other Forms Of Tobacco Or Nicotine? No MIGRATION.54099 93422 Information not available 05/13/2022 Sex: Female Functional Status Question Answer Note LastModified by Organizat ion Details LastModified Time What is your exercise level? None [id number] Information not available 05/13/2022 Mental Status None recorded. Family History Relationship Description Onset Age of this Age Resolved Age Notes LastModified by Organization Details LastModified Time Father Acute stroke MIGRATION.0 30 [id number] Not available 05/13/2022 18:03:14 Brother Malignant tumor of esophagus 51 54 [id number] [id number] Not available 05/13/2022 18:03:14 Son Heart disease [id number] Not available 05/13/2022 18:03:14 Medical History Condition Response BLINDNESS N RHEUMATIC FEVER N KIDNEY STONES N BLADDER PROBLEMS N MRSA N OTHER # 1 N POLIO N LUNG DISEASE/DISORDER N HISTORY OF DRUG ABUSE N RADIATION / CHEMOTHERAPY N COPD N Other # 2 N BLOOD DISEASES N SURGERY N EAR OR HEARING PROBLEMS N MUMPS N SHINGLES N FEMALE PROBLEMS / INFECTIONS N DEPRESSION (INCLUDING POST ) N BOWEL PROBLEMS N STROKE/TIA N THYROID DISEASE N ULCERS N BENIGN PROSTATIC HYPERPLASIA N MEASLES N CERVICALGIA N TB SKIN TEST N HYPOTENSION N MYOCARDIAL INFARCTION N PARAPELGIA N OBESITY N GERD/NAUSEA N ANEURYSM N URINARY/BLADDER/KIDNEY PROBLEMS N CORONARY ARTERY DISEASE (CAD) N MENIERE'S DISEASE N Do you have Advance directive? N ADDICTION CONCERNS N ENDOMETRIOSIS N USE OF BLOOD THINNERS N SKIN PROBLEMS N EMPHYSEMA N GASTROINTESTINAL DISORDER N MUSCLE,JOINT OR BONE PROBLEMS N GASTROINTESTINAL BLEEDING N BLOOD CLOTS N ASTHMA N CATARACTS N ERECTILE DYSFUNCTION N GI PROBLEMS N CHF N Low Testosterone N NEUROPATHY N INFERTILITY N AIDS/HIV N FRACTURES N CHEMOTHERAPY / RADIATION N VISION/EYE PROBLEMS N LIVER DISEASE N MALE HYPOGONADISM N HYPERTENSION N TOURETTE'S N ANXIETY DISORDER N BLOOD TRANSFUSION N ANEMIA/BLOOD DISORDER N CHRONIC EAR INFECTIONS N BRONCHITIS N TUBERCULOSIS N GLAUCOMA N FOOT PROBLEM N DIVERTICULITIS N SLEEP APNEA N CHICKENPOX N ALLERGIES/HAYFEVER N INFECTIOUS DISEASE N PROSTATE N HEART ARRHYTHMIA Y INSOMNIA N HIGH CHOLESTEROL / HYPERLIPIDEMIA N EYE PROBLEMS N HYPERTHYROIDISM N EATING DISORDER N EDEMA N CHRONIC PAIN SYNDROME N CAROTID BLOCKAGE N CONSTIPATION N BACK / NECK PROBLEMS N HAVE YOU BEEN HOSPITALIZED OR SEEN IN [facility] IN THE PAST YEAR ? N ATHEROSCLEROSIS N BREAST PROBLEMS N DIALYSIS N ECZEMA N FIBROMYALGIA N OSTEOPOROSIS N ARTHRITIS N NO SIGNIFICANT PAST MEDICAL HISTORY N APPENDICITIS N DIABETES, TYPE N BAD TEETH N HEARTBURN / REFLUX N ADD/ADHD N AUTISM SPECTRUM DISORDER (ASD) N HEPATITIS / LIVER DISEASE N PULMONARY DISEASE N GOUT N SLEEP DISORDER N ALZHEIMER'S DISEASE N PAIN N DEMENTIA N HERPES N SEIZURES/EPILEPSY N HEADACHES/MIGRAINES N VASCULAR DISEASE N PACEMAKER N DIZZINESS N HEART DISEASE/HEART PROBLEMS N KIDNEY DISEASE N SCARLET FEVER N MULTIPLE SCLEROSIS N MENTAL DISORDER/ILLNESS N DEVELOPMENTAL OR BEHAVIORAL DISORDERS N CANCER: SPECIFY N CARDIAC ARRHYTHMIA Y PNEUMONIA N ATRIAL FIBRILLATION N Gall Stones N PULMONARY EMBOLISM N AUTOIMMUNE DISEASE N Gynecological History Statement/Question Response Abnormal Pap N Date of Last Colonoscopy Flow Light Most Recent Bone Density Date of LMP 03/11/2023 Frequency of Cycle (Q days) 28 Menses Monthly Y Duration of Flow (days) 6 Date of Last Pap Smear 04/15/2022 Most Recent Mammogram 04/15/2022 Obstetrics History GPAL:G 4 P 1 0 3 1 Type Value Full Term 1 Living 1 Ectopics 3 Total 4 Immunizations Vaccine Type Date Status Note Provider Nam e and Address Organization Details Recorded Time SARS-COV-2 (COVID-19) vaccine, UNSPECIFIED 1 completed Not Available [facility] 05/13/2022 18:06:53 Influenza, split virus, trivalent, preservative 5 completed Not Available [facility] 05/13/2022 18:06:53 Tdap 1 completed Not Available [facility] 05/13/2022 18:06:53 Influenza, split virus, quadrivalent, PF 1 completed Not Available [facility] 05/13/2022 18:06:53 Past Encounters Encounter ID Performer Location Encounter Start Date Encounter Closed Date Diagnosis/Indication Diagnosis SNOMED-CT Code Diagnosis ICD10 Code Diagnosis Note [id number] [address] [address] 02/28/2021 00:00:00 02/28/2021 14:44:[id number] [address] 1 04/03/2021 00:00:00 04/03/2021 10:39:[id number] [address] 1 05/14/2021 00:00:00 05/14/2021 11:49:[id number] [address] 1 08/20/2021 00:00:00 08/20/2021 11:32:07 [id number] _ATHENA_M IGRATION_ DEFAULT_1 _1 , 09/10/2021 00:00:00 09/10/2021 11:56:08 [id number] Nanci Gramajo NP [address] [address] 02/02/2023 11:32:35 02/02/2023 13:01:58 Anemia screening 622314907 Z13.0 Diabetes m ellitus screening [id number] Z13.1 Thyroid di sorder screening [id number] Z13.29 patient states ER diagnosed her with hypothyroi dism and put her on levothyrox ine 25 mcg. Hyperlipid emia screening 144202090 Z13.220 Essential hypertension 16137704 I10 Lisinopril 10 mg po daily. Morbid obesity 915186477 E66.01 work to reduce BMI. Obstructiv e sleep apnea syndrome 44978980 G47.[address] Thyroid [address] imulating hormone level above reference range 195543805 R94.6 TSh was 4.53 H in er with normal free t4. HR was 38-40.ER started Levothyrox ine 25 mcg po daily. Will continue script, pt only has few days left. Allergic reaction 535325 005 T78.40XA epipen refill needed. Asthma [id number] J45.90 9 Symbicort. [id number] Nacni Gramajo NP [facility] [place] [id number] 1 03/24/2023 09:51:01 03/24/2023 18:30:30 Palpitations 48662879 R00.2 Seeing cardiology . Obese [id number] E66.9 diet and exercise. Insurance doesn't cover glp injections . Allergic reaction 831350 005 T78.40XA epipen refill needed. Asthma [id number] J45.90 9 Symbicort. albuterol prn. Migraine 59727566 G43.90 9 no migraines. Sumatripta n prn breakthoug h isolated migraine. Hyperglycemia 17820102 R 73.9 check labs Leukocytosis 757876796 D 72.829 check cbc- may need to see hematologi st. Health Concerns Section Related Observation LastModified by Organization Manuel mak LastModified Time None Recorded Concern Status LastModified by Organization Details LastModified Time None Recorded Advance Directives Directive N: Payers Encounter Date Sequence Insurance Name Policy Number Policy Sousa Covered Member ID Sousa Member ID Guarantor Name 02/02/2023 1 [facility] - DOS ON OR AFTER 20 (MEDICAID REPLACEMENT - HMO) Shantell Delarosa [id number] Shantell Delarosa 03/24/2023 1 [facility] - DOS ON OR AFTER 20 (MEDICAID REPLACEMENT - HMO) Shantell Delarosa [id number] Shantell Delarosa Notes Date Note Type Note Provider Name and Address Organization Details Recorded Time 02/02/2023 text/html Here for fu from [facility] ER. had allergic reaction, went to hospital. Has been on levothyroxine 25 mcg po daily for 2 weeks. Heart rate is 70s since starting. TSH 4.53H with normal Freet4.Went to cardiology- echo and stress test ordered for 02/24/23 SHAHLA- wearing CPAP nightly.Asthma- using symbicort- more sob lately. Nanci Gramajo NP [address], [place], [address], [place] 02/02/2023 12:58:14 03/24/2023 text/html Here for follow up from seeing On Site Nurse. Had ECHO and Stress test via medical lab director. Still feeling palpitations or PVC. Allergy to wheat, soy and corn. Reeves awful and almost from last allergic reaction. Can't get epipen as often anymore. Needs to have labs repeated. Nanci Gramajo NP [address], [place], [address], [place] 03/26/2023 09:36:01 OBGyn Episode No OBEpisode recorded.
--- OUTSIDE RECORDS SUMMARY | 2024-06-11 16:50 | XMS_ITS | Clinical Summary ---
Author Organization [facility] Address [address] [place] [address] Care Team Providers Care Artillery Meteorological Man Name Role Phone Nanci Gramajo Jung GUERRIER-IRRIGATION EQUIPMENT MECHANIC Primary Care Provider Source Comments [facility],non-owned Affiliates and Associated Physician Practices is amultiple site organization consisting of ambulatory clinics and hospital sitesin [place], [place], [place] and [place]. This disclosure is being madepursuant to the Care Everywhere program and may not contain all information available regarding this patient. Last updated 17.[facility] Allergies Active Allergy Reactions Criticality Noted Date Comments Aloe Unknown 04/15/2020 [place] Oil Unknown 04/15/2020 Latex Urticaria Medium 01/21/2018 Sesame Oil Anaphylaxis High 01/17/2018 [place] Oil Anaphylaxis High 01/17/2018 Tree Nuts Anaphylaxis High 04/29/2017 Wheat Bran Unknown 04/15/2020 Medications * Be aware that medications may not be up to date on this document. Alwaysverify current medications with the patient. Medication Sig Dispensed Refills Start Date End Date Status FLUoxetine (PROZAC) 20 MG tablet Take 20 mg by mouth once daily 03/27/2020 Active Active Problems No known active problems Social History Tobacco Use Types Packs/Day Years Used Date Smoking Tobacco: Never Smokeless Tobacco: Never Alcohol Use Standard Drinks/Week Comments No 0 (1 standard drink = 0.6 oz pur e alcohol) Sex and Gender Information Value Date Recorded Sex Assigned at Not on file Gender Identity Not on file Sexual Orientation Not on file Last Filed Vital Signs Vital Sign Reading Time Taken Comments Blood Pressure 110/80 04/15/2020 1:40 PM LINUX SYSTEM ADMINISTRATOR Pulse 89 04/15/2020 1:40 PM LINUX SYSTEM ADMINISTRATOR Temperature 36.1 C (97 F) 04/15/2020 1:40 PM LINUX SYSTEM ADMINISTRATOR Respiratory Rate - - Oxygen Saturation 97% 04/15/2020 1:40 PM LINUX SYSTEM ADMINISTRATOR Inhaled Oxygen Concentration - - Weight 163.3 kg (360 lb) 04/15/2020 1:40 PM LINUX SYSTEM ADMINISTRATOR Height 167.6 cm (5' 6 ) 04/15/2020 1:40 PM LINUX SYSTEM ADMINISTRATOR Body Mass Index 58.11 04/15/2020 1:40 PM LINUX SYSTEM ADMINISTRATOR Plan of Treatment Health Maintenance Due Date Last Done Comments LIPID TESTING 1981 MAMMOGRAM 1980 HIV SCREENING 1996 HEPATITIS C SCREENING 04/13/1999 DTAP/TDAP/TD VACCINES (1 - Tdap) 2000 HEPATITIS B VACCINE (1 of 3 - 19+ 3-dose series) 2000 PAP SMEAR 12/25/2019 12/24/2016 COVID-19 VACCINE (1 - 2023-2 5 season) 2023 INFLUENZA VACCINE (#1) 2023 1, 01/18/2018, 12/13/2014 DEPRESSION SCREENING 03/15/2024 ZOSTER VACCINE (1 of 2) 2031 HIB VACCINE Aged Out No longer eligi ble based on patient's age to complete this topic HPV VACCINE Aged Out No longer eligi ble based on patient's age to complete this topic MENINGOCOCCAL (Group B) VACCINE SHARED DECISION-MAKING Aged Out No longer eligible based on patient's age to complete this topic MENINGOCOCCAL GROUPS A/C/Y/W VACCINE Aged Out No longer eligible b ased on patient's age to complete this topic PNEUMOCOCCAL VACCINE Aged Out No long er eligible based on patient's age to complete this topic Care Teams Artillery Meteorological Man Relationship Specialty Start Date End Date Nanci Gramajo, COSMETICS MACHINE OPERATOR-IRRIGATION EQUIPMENT MECHANIC [address] [place] [address] PCP - General 02/01/18
--- OUTSIDE RECORDS SUMMARY | 2024-06-11 16:50 | XMS_ITS | Clinical Summary ---
Author Organization [facility] Address [address] [place] [address] Phone Care Team Providers Care Operations Mgr Name Role Phone Nanci Gramajo COMBATANT SWIMMER, WARP WORKER Primary Care Pro vider Allergies Active Allergy Reactions Criticality Noted Date Comments Union-Containing Products Anaphylaxis 05/12/2021 Latex Hives Medium 01/21/2018 Other Anaphylaxis High 01/21/2018 whole wheat Peanut (Diagnostic) Anaphylaxis 01/17/2018 Sesame Oil Anaphylaxis 01/17/2018 Sesame Seed (Diagnostic) Anaphylaxis 01/17/2018 [place] Oil Anaphylaxis 01/17/2018 Medications ARIPiprazole (ABILIFY) 5 MG Tablet TK 1 T PO QD 0 8 Active losartan (COZAAR) 50 MG Tablet TK 1 T PO QD 1 8 Active sertraline (ZOLOFT) 100 MG Tablet TK 2 TS PO QD 1 8 Active traMADol (ULTRAM) 50 MG Tablet Take 1 Tab by mouth every 6 hours as needed for Mild or more severe pain. 15 Tab 8 Active Additional Information Patient not taking.Reported on 02/01/2018 Norethin Dangelo-Eth Estrad-FE (BLISOVI 24 FE) 1-20 MG-MCG(24) TabletIndicati ons:Contracept zoltan Therapy Take 1 Tab by mouth daily. Active HYDROcodone-ac etaminophen (NORCO) 5-325 MG Tablet Take 1 Tab by mouth every 6 hours as needed for Moderate or more severe pain. 10 Tab 8 Active Additional Information Patient not taking.Reported on 05/12/2021 EPINEPHrine (EPIPEN) 0.3 MG/0.3ML Solution Auto-injector 0.3 mg by Intramuscular route as needed for Anaphylaxis. Active Topiramate (TOPAMAX PO) Take by mouth. Ac tive azithromycin (ZITHROMAX Z-FAVIAN) 250 MG Tablet 2 tab(s) daily for 1 day, then 1 tab(s) daily for days 2-5. 6 Tab 9 Active Additional Information Patient not taking.Reported on 05/12/2021 promethazine-c odeine (PHENERGAN WITH CODEINE) 6.25-10 MG/5ML Syrup Take 5 mL by mouth every 4 hours as needed for Cough. 120 mL 9 Active Additional Information Patient not taking.Reported on 05/12/2021 meclizine (ANTIVERT) 25 MG Tablet Take 1 Tablet by mouth 3 times daily as needed for Dizziness. 30 Tablet 2 Active Active Problems Problem Noted Date Diagnosed Date Intermittent explosive disorder in adult 019 Abdominal wall abscess 01/17/2018 Labial abscess 01/17/2018 Gram positive sepsis 01/17/2018 Hypertension 01/17/2018 Urinary tract infection without hematuria 2017 Morbid obesity 01/17/2018 Chronic post-traumatic stress disorder (PTSD) Bipolar II disorder, most recent episode major d epressive 09/22/2017 Immunizations Immunization Administration Dates Next Due Influenza Vaccine, Quadrivalent, PF 01/18/2018 Family History Medical History Relation Name Comments Cancer Brother Diabetes Father Hypertension Father High Cholesterol Mother Hypertension Mother Diabetes Sister Relation Name Status Comments Brother Father Mother Sister Social History Tobacco Use Types Packs/Day Years Used Date Smoking Tobacco: Never Smokeless Tobacco: Never Tobacco Cessation:Counseling Given: Yes Alcohol Use Standard Drinks/Week Comments Not Currently 0 (1 standard drink = 0.6 oz pur e alcohol) periodic bindging Sexually Active Control Partners Comments Not Currently Male Comments No Sex and Gender Information Value Date Recorded Sex Assigned at Not on file Legal Sex Female 9:55 PM CDT Gender Identity Not on file Sexual Orientation Not on file Last Filed Vital Signs Vital Sign Reading Time Taken Comments Blood Pressure 154/85 05/12/2021 10:15 PM CHIPPER FEEDER Pulse 72 05/12/2021 10:30 PM CHIPPER FEEDER Temperature 36.4 C (97.5 F) 05/12/2021 9:10 PM CHIPPER FEEDER Respiratory Rate 18 05/12/2021 9:10 PM CHIPPER FEEDER Oxygen Saturation 99% 05/12/2021 10:30 PM CHIPPER FEEDER Inhaled Oxygen Concentration - - Weight 160.1 kg (353 lb) 05/12/2021 9:10 PM CHIPPER FEEDER Height 170.2 cm (5' 7 ) 05/12/2021 9:10 PM CHIPPER FEEDER Body Mass Index 55.29 05/12/2021 9:10 PM CHIPPER FEEDER Plan of Treatment Health Maintenance Due Date Last Done Comments Hepatitis C Virus (HCV) Screening 1981 Hepatitis B Immunization (1 of 3 - 19+ 3-dose series) 2000 Influenza Immunization (#1) 11/14/202303/15, 01/18/2018, 12/13/2014, Additional history exists SARS-COV-2 Immunization ( season) 2023 01/10/2021 Respiratory Syncytial Virus (RSV) Immunization (Adult) (1 - 1-dose 75+ series) 2056 DTaP/Tdap/Td Immunization Discontinued 03/15/2010 TdaP Immunization Completed 03/15/2010 Meningococcal Immunization (ACWY) Aged Out No longer eligible based on patient's age to complete this topic Pneumococcal Immunization Combined Aged Out No longer eligible based on patient's age to complete this topic Rotavirus Immunization Aged Out No lo nger eligible based on patient's age to complete this topic Insurance MEDICAID [employer] Advance Directives * Full Code (Latest Code Status on File) Date Activated Date Inactivated Comments 01/17/2018 4:51 PM 01/19/2018 3:30 PM CPR-Full Joe atment: FULL ARREST: Attempt Resuscitation/CPR wit intubation and mechanical ventilation. PRE-ARREST: Use entire range of life support measures to stabilize the patient. Care Teams Operations Mgr Relationship Specialty Start Date End Date Nanci Gramajo, COMBATANT SWIMMER, WARP WORKER [address] [place] [address] PCP - General Certified Nurse Practitioner 09/22/17
--- OUTSIDE RECORDS SUMMARY | 2024-06-11 16:51 | XMS_ITS | Clinical Summary ---
Author Organization [facility] Address [address] [place] [address] Phone Care Team Providers Care Body Design Checker Name Role Phone Unavailable Unavailable Unavailable Reason [...] Time Diagnosis PAP SMEAR ONLY BANDAR MERCER [facility] TIRE MANAGER 7 1:30PM 2:33PM Clinical Notes Includes: Clinical Notes from this encounter No Clinical Notes Recorded
--- OUTSIDE RECORDS SUMMARY | 2024-06-11 16:51 | XMS_ITS ---
Author Organization [facility] Address [address] [place] [address] Phone Care Team Providers Care Double Needle Stitcher Name Role Phone Unavailable Unavailable Unavailable Plan of Treatment No Plan of Treatment Recorded Assessments Includes: Assessments for all patient encounters No Assessments Recorded Medical Equipment - Implanted Devices Includes: Current and historical Devices No Medical Equipment Recorded Medications Administered Includes: Administered Medications in patient's chart No Administered Medications Recorded Results Includes: Results from 06/12/2023 through 06/11/2024 No Results Recorded For Specified Dates History of Present Illness History of Present Illness not supported for this document type No History of Present Illness Recorded Social History No Social History Recorded - Smoking Status Unknown Medical History Includes: Medical History in patient's chart No Medical History Recorded Family History Includes: Family History in patient's chart No Family History Recorded Review of Systems Review of Systems not supported for this document type No Review of Systems Recorded Mental Status No Mental Status Recorded Functional Status No Functional Status Recorded Physical Exam Physical Exam not supported for this document type No Physical Exam Recorded Clinical Notes Includes: Signed Clinical Notes starting from 04/03/2022 No Clinical Notes Recorded
--- OUTSIDE RECORDS SUMMARY | 2024-06-11 16:51 | XMS_ITS | Clinical Summary ---
Author Organization [facility] Address [address] [place] [address] Phone Care Team Providers Care Ad Writer Name Role Phone Unavailable Unavailable Unavailable Reason for Visit and Chief Complaint NEW CHEMICAL PROCESS ANALYST EXAM Plan of Treatment No Plan of [...] Check-In Time Check- Out Time Diagnosis NEW CHEMICAL PROCESS ANALYST EXAM BANDAR MERCER [facility] [address] SUPERVISOR 7 10:45AM 12:13PM Clinical Notes Includes: Clinical Notes from this encounter No Clinical Notes Recorded
[2024-06-11 16:52] VITALS: BP 141/79; PULSE 73; RESP 20; TEMP 36.4; O2SAT 97
--- OUTSIDE RECORDS SUMMARY | 2024-06-11 16:52 | XMS_ITS ---
Care Plan - [facility] Created on: June 11, 2024 SEBASTIAN LOPEZ : 1980 Sex: Female Author Organization [facility] Address [address] [place] [address] Phone Care Team Providers Care Reservation Clerk Name Role Phone Unavailable Unavailable Unavailable
--- NOTE | 2024-06-11 17:00 | ED_ITS ---
HPI - Wound/Laceration General Chief Complaint: Wound/Laceration Stated Complaint: Skin Sore/Finger Time Seen by Provider: 06/11/24 17:00 Source: patient Mode of arrival: ambulatory Limitations: no limitations History of Present Illness HPI narrative: 44 yo F presents with paronychia to L middle finger. Has some pain and redness yesterday. noticed white pus under skin today. pt wears fake press on nails that she applied herself. All systems reviewed and negative except as noted above. Related Data Home Medications ?Medication ?Instructions ?Recorded ?Confirmed ?Last Taken ?Type budesonide-formoterol HFA 160 puff inhalation BID PRN Wheezing 01/15/23 Unknown History mcg-4.5 mcg/actuation aerosol inhaler (Symbicort) cetirizine 10 mg tablet 10 mg PO DAILY 01/15/23 01/15/23 Unknown History famotidine 20 mg tablet 20 mg PO BID 01/15/23 01/15/23 Unknown History lisinopril 10 mg tablet 10 mg PO DAILY 01/15/23 06/11/24 Unknown History norethindrone 1 mg-ethinyl 1 tablet PO DAILY 01/15/23 01/15/23 Unknown History estradiol 10 mcg (24)-iron 10 mcg(2) tablet (Lo Loestrin Fe) Allergies Allergy/AdvReac Type Severity Reaction Status Date / Time tree nut Allergy Severe Rash Verified 06/11/24 17:04 aloe Allergy Mild Rash Verified 06/11/24 17:04 sesame seed Allergy Mild Unknown Verified 06/11/24 17:04 corn Allergy Unknown Other Verified 06/11/24 17:04 latex Allergy Unknown Other Verified 06/11/24 17:04 wheat Allergy Unknown Other Verified 06/11/24 17:04 soy Allergy Hives Verified 06/11/24 17:04 Cat Dander Allergy Unknown Other Uncoded 06/11/24 17:04 Dog Dander Allergy Unknown Other Uncoded 06/11/24 17:04 Review of Systems Review of Systems: CONSTITUTIONAL: Denies fever, chills, or sweats. EYES: Denies visual changes, redness, or discharge. ENT: Denies rhinorrhea, congestion, sore throat, or otalgia. CARDIOVASCULAR: Denies chest pain, palpitations, or edema. RESPIRATORY: Denies cough or dyspnea. GASTROINTESTINAL: Denies abdominal pain, nausea, vomiting, or diarrhea. GENITOURINARY: Denies dysuria or hematuria. SKIN: Denies rash or itching. Reports paronychia to left middle finger. MUSCULOSKELETAL: Denies back pain, joint pain, or myalgia. NEUROLOGIC: Denies headache, numbness, or weakness. PSYCHIATRIC: Denies anxiety or depression. All other systems reviewed are negative, except as documented in HPI. [facility] Past Medical History Medical History (Updated 06/11/24 @ 17:17 by Claudette Anaya NP) Chest pain Social History Social History (Updated 06/11/21 @ 21:22 by Daija [place] MD) Smoking status: Never smoker Alcohol intake: never Substance use: current Substance use type: marijuana Gender identity (if verbalized by the patient): Female Comments At time of signature, agree with nursing past medical, surgical, social and family history. There is no relevant family history pertinent to the presenting complaint. Exam Narrative: GENERAL: This is a well-nourished, well-developed patient, in no apparent distress. HEAD: normocephalic, atraumatic. EYES: PERRL. Sclera clear/white. Vision is grossly intact. EARS: External ears normal NOSE: External nose normal NECK: Neck supple, non-tender without lymphadenopathy, masses or thyromegaly. CARDIOVASCULAR: Regular rate and rhythm without murmurs, gallops, or rubs. RESPIRATORY: Clear to auscultation. Breath sounds equal bilaterally. No wheezes, rales, or rhonchi. SKIN: warm, Dry, intact with no suspicious lesions or rash, good texture and turgor. small paronychia to latearl aspect L cuticle NEURO: awake, alert, and oriented to person, place and time. There were no obvious focal neurologic abnormalities. EXTREMITIES: No joint tenderness, effusion, or edema noted. Course Course Level of Care: Express Care Visit Vital Signs Vital signs: Vital Signs Temperature 36.4 C 06/11/24 16:52 Pulse Rate 73 06/11/24 16:52 Respiratory Rate 20 06/11/24 16:52 Blood Pressure 141/79 H 06/11/24 16:52 Pulse Oximetry 97 06/11/24 16:52 Oxygen Delivery Room Air 06/11/24 16:52 Temperature 36.4 C 03/30/25 16:52 Pulse Rate 73 06/11/24 16:52 Respiratory Rate 20 06/11/24 16:52 Blood Pressure 141/79 H 06/11/24 16:52 Pulse Oximetry 97 06/11/24 16:52 Oxygen Delivery Room Air 06/11/24 16:52 reviewed Procedures Abscess I/D hand: Date of Incision: 06/11/24 Time of Incision: 17:15 Side (if applicable): left ( middle finger) Local Anesthetic: none Technique: incised with #11 blade I&D Results: Pus Abcess I&D Additional Comments: paronychia to left middle finger cleaned with Betadine and drained with a 11 blade MDM - Wound/Laceration MDM Narrative Medical decision making narrative: . He can to left middle finger drained. CMS intact. Please be advised this is a medical document. It is intended for dwgj-py-ajqu communication. It is written in medical language and may contain unfamiliar abbreviations or verbiage. Medical documents are intended to carry relevant information, facts as evident, and the clinical opinion of the practitioner at the time of the encounter. This report may have been done utilizing a voice recognition system. Attempts have been made to correct errors. However, there may be uncorrected grammatical, spelling, and recognition errors present. The file time of this note does not necessarily represent the time of service. Discharge Plan Discharge Clinical Impression: Paronychia of left middle finger Patient Disposition: Home, Self-Care Condition: Stable Instructions: Antibiotic Form, Paronychia (ED) Additional Instructions: Take antibiotic as prescribed until gone. Keep clean and dry with soap and water. Apply antibiotic ointment twice a day for 7 days. Take Tylenol or ibuprofen every 6-8 hours as needed for pain. Follow-up with your primary care physician as needed. Patient Language: Spanish Prescriptions: New amoxicillin-pot clavulanate 875-125 mg tablet 1 tablet PO Q12H 7 Days Qty: 14 0RF mupirocin [Centany] 2 % ointment 1 applic topical BID 7 Days Qty: 15 0RF No Action cetirizine 10 mg tablet 10 mg PO DAILY famotidine 20 mg tablet 20 mg PO BID lisinopril 10 mg tablet 10 mg PO DAILY Lo Loestrin Fe 1 mg-10 mcg (24)/10 mcg (2) tablet 1 tablet PO DAILY budesonide-formoterol [Symbicort] 160-4.5 mcg/actuation HFA aerosol inhaler INHALATION BID PRN (Reason: Wheezing) albuterol sulfate 90 mcg/actuation aero powdr breath act w/sensor 1 inhalation INHALATION Q4-6H PRN (Reason: shortness of breath or wheezing) 10 Days Qty: 1 0RF Follow-up/Referrals: PHYSICIAN,CRAWLER DRAGLINE OPERATOR [Primary Care Provider] - Time of Disposition: 17:18
== END 2024-06-11 17:24 | disposition home or self-care (01) ==
PROVIDERS: Emergency Provider Nurse Practitioner Family
DX: L03.012 Cellulitis of left finger (principal)
CPT/HCPCS: 10060; 99213; G0463